=== PATIENT | male | born 1960 | race Caucasian/White ===

== ENCOUNTER 2017-02-04 09:16 | Outpatient (CLI) | payer OTHER ==
[~2017-02-04] VITALS: Ht 180.3 cm; Wt 73.0 kg
[2017-02-04] MEDS ORDERED: DIVA500T15 PO ×2 (09:25)
[2017-02-04] MEDS ORDERED: IBUP-2055 PO (09:25)
[2017-02-04 09:26] VITALS: BP 146/90
== END 2017-02-04 09:42 | disposition home or self-care (01) ==
LOC: PREOP 09:16
PROVIDERS: ATTEND Surgery
DX: Z01.818 Encounter for other preprocedural examination (principal); K80.20 Calculus of gallbladder without cholecystitis without obstruction
CPT/HCPCS: 87081

== ENCOUNTER 2017-02-07 06:05 | Day surgery (SDC) | payer SELFPAY ==
[~2017-02-07] VITALS: Ht 180.3 cm; Wt 73.0 kg
[~2017-02-07 06:05] MED LIST: DIVA500T15 PO; IBUP-2055 PO
--- OUTSIDE RECORDS SUMMARY | 2017-02-07 06:21 | XMS REPORT ---
Author Author SUNIL PALACIOS [facility] eClinicalWorks Address Unknown Phone Unavailable Care Team Providers Care Cupola Melting Supervisor Name Role Phone SUNIL PALACIOS CP Unavailable Allergies, Adverse Reactions, Alerts Substance Reaction Event Type Zithromax numbness, psychosis Drug Allergy Problems Problem Type Condition Code Onset Dates Condition Status Problem Essential hypertension, benign 401.1 Active Problem Nondependent tobacco use disorder 305.1 Active Problem Other dental caries 521.09 Active Problem Left hip pain M25.552 Active Problem Depression, unspecified depression type F32.9 Active Problem Hx of hyperlipidemia Z86.39 Active Problem Hyperlipidemia 272.4 Active Problem Elevated fasting glucose R73.01 Active Problem Hypertension I10 Active Problem Mixed hyperlipidemia E78.2 Active Assessment Long-term use of high-risk medication Z79.899 Active Problem Pain in joint, site unspecified 719.40 Active Problem Dyshidrosis 705.81 Active Medications Medication Code System Code Instructions Start Date End Date Status Dosage Depakote [facility] [address]-70 500 MG Orally 2 times a day not defined Procedures Procedure Coding System Code Date COMPLETE CBC W/AUTO DIFF WBC CPT-4 80081 Feb 22, 2016 RBC SED RATE, AUTOMATED CPT-4 32097 Feb 22, 2016 ASSAY, DIPROPYLACETIC ACID CPT-4 72221 Feb 22, 2016 VENIPUNCT, ROUTINE* CPT-4 81471 Feb 22, 2016 COMPREHEN METABOLIC PANEL CPT-4 49772 Feb 22, 2016 Office Visit, Est Pt., Level 4 CPT-4 00839 Feb 22, 2016 Vital Signs Date/Time: Feb 22, 2016 Cardiac Monitoring Heart Rate 92 bpm Weight 165.5 lbs Height 71 in BMI 23.08 Index Blood Pressure Diastolic 76 mmHg Blood Pressure Systolic 134 mmHg Results Name Result Date Reference Range Unit Abnormality Flag CBC ----Lymphs 26 18233644 % ----Neutrophils 62 57153327 % ----Baso (Absolute) 0.0 00164860 0.0-0.2 x10E3/uL ----Hemoglobin 17.5 66965603 12.6-17.7 g/dL ----Eos (Absolute) 0.1 28156693 0.0-0.4 x10E3/uL ----Hematocrit 50.9 95666168 37.5-51.0 % ----Monocytes(Absolute) 1.0 93656914 0.1-0.9 x10E3/uL H ----MCV 92 99460644 79-97 fL ----Lymphs (Absolute) 2.4 16148229 0.7-3.1 x10E3/uL ----MCH 31.8 41904467 26.6-33.0 pg ----Neutrophils (Absolute) 5.7 95912351 1.4-7.0 x10E3/uL ----MCHC 34.4 80070039 31.5-35.7 g/dL ----Immature Granulocytes 0 36678160 % ----Basos 0 72257043 % ----RDW 13.5 61996137 12.3-15.4 % ----Immature Grans (Abs) 0.0 86794133 0.0-0.1 x10E3/uL ----WBC 9.2 71605147 3.4-10.8 x10E3/uL ----Platelets 150 76484462 150-379 x10E3/uL ----Eos 1 74934314 % ----RBC 5.51 41511559 4.14-5.80 x10E6/uL ----Monocytes 11 95802582 % ESR/SED RATE ----Sedimentation Rate-Westergren 2 93375945 0-30 mm/hr ROUTINE VENIPUNCTURE VALPROIC ACID/DEPAKOTE ----Valproic Acid (Depakote)(R),S 53 40536179 50-100 ug/mL CMP ----Potassium, Serum 4.5 43027536 3.5-5.2 mmol/L ----Sodium, Serum 142 91168639 134-144 mmol/L ----BUN/Creatinine Ratio 15 50841830 9-20 ----eGFR If Africn Am 118 02943972 >59 mL/min/1.73 ----eGFR If NonAfricn Am 102 98135560 >59 mL/min/1.73 ----Creatinine, Serum 0.74 97336781 0.76-1.27 mg/dL L ----BUN 11 20160222 6-24 mg/dL ----Glucose, Serum 92 06877642 65-99 mg/dL ----AST (SGOT) 28 89134307 0-40 IU/L ----Globulin, Total 2.6 06790012 1.5-4.5 g/dL ----ALT (SGPT) 37 08159002 0-44 IU/L ----A/G Ratio 1.7 20160222 1.1-2.5 ----Bilirubin, Total 0.5 44969304 0.0-1.2 mg/dL ----Alkaline Phosphatase, S 82 72161544 39-117 IU/L ----Carbon Dioxide, Total 25 20160222 18-29 mmol/L ----Calcium, Serum 9.4 64667889 8.7-10.2 mg/dL ----Protein, Total, Serum 7.0 43903589 6.0-8.5 g/dL ----Albumin, Serum 4.4 92467206 3.5-5.5 g/dL ----Chloride, Serum 99 21358725 97-108 mmol/L Summary Purpose eClinicalWorks Submission
--- OUTSIDE RECORDS SUMMARY | 2017-02-07 06:21 | XMS REPORT ---
Author Author SUNIL PALACIOS Organization eClinicalWorks Address Unknown Phone Unavailable Care Team Providers Care Logistic Specialist Name Role Phone SUNIL PALACIOS CP Unavailable Allergies No Known Allergies Problems Problem Type Condition Code Onset Dates Condition Status Problem Nondependent tobacco use disorder 305.1 Active Problem Other dental caries 521.09 Active Problem Hyperlipidemia 272.4 Active Problem Pain in joint, site unspecified 719.40 Active Problem Essential hypertension, benign 401.1 Active Problem Dyshidrosis 705.81 Active Medications Medication Code System Code Instructions Start Date End Date Status Dosage losartan NDC 0 50 mg orally once daily take 1 tablet (50 mg) Results No Known Results Summary Purpose eClinicalWorks Submission
--- OUTSIDE RECORDS SUMMARY | 2017-02-07 06:21 | XMS REPORT ---
Author Author SUNIL PALACIOS [facility] eClinicalWorks Address Unknown Phone Unavailable Care Team Providers Care Concrete Tile Machine Operator Name Role Phone SUNIL PALACIOS CP Unavailable Allergies, Adverse Reactions, Alerts Substance Reaction Event Type Zithromax numbness, psychosis Drug Allergy Problems Problem Type Condition ICD-9 Code Onset Dates Condition Status Assessment Sciatica 724.3 Active Assessment COPD (chronic obstructive pulmonary disease) 496 Active Assessment Tobacco dependence 305.1 Active Assessment Hyperlipidemia 272.4 Active Assessment Neck pain 723.1 Active Problem Nondependent tobacco use disorder 305.1 Active Problem Other dental caries 521.09 Active Problem Hyperlipidemia 272.4 Active Problem Pain in joint, site unspecified 719.40 Active Assessment Essential hypertension, benign 401.1 Active Problem Essential hypertension, benign 401.1 Active Problem Dyshidrosis 705.81 Active Medications Medication Code System Code Instructions Start Date End Date Status Dosage Cyclobenzaprine HCl [facility] [address]-04 10 MG Orally Once a day prn at hs Feb 01, 2015 Feb 15, 2015 1 [place] [address]-03 10 mg Jul 08, 2014 1 Tablet by Oral route 1 time per day REPOSITORY losartan NDC 0 50 mg orally once daily take 1 tablet (50 mg) PredniSONE [facility] [address]-45 10 MG Orally Twice a day Feb 01, 2015 Feb 08, 2015 1 [place] [address]-49 200 MG Orally every 6 hrs 1 tablet as needed Procedures Procedure Coding System Code Date LIPID PANEL CPT-4 46036 Feb 01, 2015 Office Visit, Est Pt., Level 3 CPT-4 27414 Feb 01, 2015 COMPREHEN METABOLIC PANEL CPT-4 30754 Feb 01, 2015 VENIPUNCT, ROUTINE* CPT-4 69512 Feb 01, 2015 Vital Signs Date/Time: Feb 01, 2015 Temperature 98.7 F Weight 193.1 lbs Height 71 in BMI 26.93 Index Blood Pressure Diastolic 82 mmHg Blood Pressure Systolic 126 mmHg Cardiac Monitoring Heart Rate 84 bpm Results Name Result Date Reference Range Unit Abnormality Flag LIPID PANEL Summary Purpose eClinicalWorks Submission
--- OUTSIDE RECORDS SUMMARY | 2017-02-07 06:21 | XMS REPORT ---
Author Author ALONDRA RENO Organization eClinicalWorks Address Unknown Phone Unavailable Care Team Providers Care Ux Design Manager Name Role Phone ALONDRA RENO CP Unavailable Allergies No Known Allergies Problems [...] Active Problem Mixed hyperlipidemia E78.2 Active Assessment Other bipolar disorder F31.89 Active Problem Pain in joint, site unspecified 719.40 Active Problem Dyshidrosis 705.81 Active Medications No Known Medications Procedures Procedure Coding System Code Date Psychotherapy, patient &/family, 30 minutes, established patient CPT-4 54554 Jan 05, 2016 Results No Known Results Summary Purpose eClinicalWorks Submission
--- OUTSIDE RECORDS SUMMARY | 2017-02-07 06:22 | XMS REPORT | Continuity of Care Document ---
Author Author [facility] Address Unknown Phone Unavailable Allergies Active Description Code Type Severity Reaction Onset Reported/Identified Relationship to Patient Clinical Status Yes Zithromax Drug Allergy N/A N/A 06/24/2014 Medications Problems Date Dx Coded Attending Type Code Diagnosis Diagnosed By 06/24/2014 MADL CROSS CUT SAWYER, SUNIL L 305.1 TOBACCO ABUSE 06/24/2014 MADL CROSS CUT SAWYER, SUNIL L 401.1 HYPERTENSION, BENIGN ESSENTIAL 06/24/2014 MADL CROSS CUT SAWYER, SUNIL L 521.09 OTHER DENTAL CARIES 06/24/2014 MADL CROSS CUT SAWYER, SUNIL L 705.81 DYSHIDROSIS 06/24/2014 MADL CROSS CUT SAWYER, SUNIL L 305.1 TOBACCO ABUSE 06/24/2014 MADL CROSS CUT SAWYER, SUNIL L 401.1 HYPERTENSION, BENIGN ESSENTIAL 06/24/2014 MADL CROSS CUT SAWYER, SUNIL L 521.09 OTHER DENTAL CARIES 06/24/2014 MADL CROSS CUT SAWYER, SUNIL L 705.81 DYSHIDROSIS 07/08/2014 MADL CROSS CUT SAWYER, SUNIL L 272.4 OTHER AND UNSPECIFIED HYPERLIPIDEMIA 07/08/2014 MADL CROSS CUT SAWYER, SUNIL L 719.40 PAIN IN JOINT SITE UNSPECIFIED 08/30/2014 MADL CROSS CUT SAWYER, SUNIL L 368.12 TRANSIENT VISUAL LOSS 08/30/2014 MADL CROSS CUT SAWYER, SUNIL L 719.41 PAIN IN JOINT INVOLVING SHOULDER REGION Procedures Code [place] [address] ROUTINE VENIPUNCTURE 06/24/2014 49212 LIPID PANEL 06/24 01841 CBC 06/24/2014 6375590 GFR CALC (RESULT ONLY) 06/24/2014 82143 CMP 06/24/2014 00257 PSA TOTAL 2014 31933 TSH 06/24/2014 51709 ROUTINE VENIPUNCTURE 08/30/2014 4372453 GFR CALC (RESULT ONLY) 08/30/2014 71214 CMP 08/30/2014 37896 XRAY SHOULDER LEFT COMP 2 VIEWS 08/30/2014 OPHTHALMO ABHISHEK ESCALANTE 08/30/2014 Results Encounters ACCT No. Visit Date/Time Discharge Status Pt. Type Provider Facility Loc./Unit Complaint [id number] 08/30/2014 08:50:00 08/30/2014 23: 59:59 [facility] Outpatient SUNIL PALACIOS APRN [id number] 06/24/2014 09:20:00 06/24/2014 23: 59:59 [facility] Outpatient SUNIL PALACIOS APRN
--- OUTSIDE RECORDS SUMMARY | 2017-02-07 06:22 | XMS REPORT ---
Author Author NAIMA GIORDANO Organization eClinicalWorks Address Unknown Phone Unavailable Care Team Providers Care Inspector Motor Vehicles Name Role Phone NAIMA GIORDANO CP Unavailable Allergies No Known Allergies Problems Problem Type Condition Code Onset Dates Condition Status Problem Dyshidrosis 705.81 Active Problem Pain in joint, site unspecified 719.40 Active Problem Mixed hyperlipidemia E78.2 Active Problem Hyperlipidemia 272.4 Active Problem Hypertension I10 Active Problem Other dental caries 521.09 Active Problem Essential hypertension, benign 401.1 Active Problem Elevated fasting glucose R73.01 Active Problem Nondependent tobacco use disorder 305.1 Active Medications No Known Medications Results No Known Results Summary Purpose eClinicalWorks Submission
--- OUTSIDE RECORDS SUMMARY | 2017-02-07 06:22 | XMS REPORT ---
Author Author SUNIL PALACIOS Organization eClinicalWorks Address Unknown Phone Unavailable Care Team Providers Care Internal Medicine Nurse Name Role Phone SUNIL PALACIOS CP Unavailable Allergies, Adverse Reactions, Alerts Substance Reaction Event Type Zithromax numbness, psychosis Drug Allergy Problems Problem Type Condition Code Onset Dates Condition Status Assessment Hypertension I10 Active Problem Dyshidrosis 705.81 Active Problem Pain in joint, site unspecified 719.40 Active Assessment Mixed hyperlipidemia E78.2 Active Problem Mixed hyperlipidemia E78.2 Active Problem Hyperlipidemia 272.4 Active Problem Hypertension I10 Active Problem Other dental caries 521.09 Active Problem Essential hypertension, benign 401.1 Active Problem Elevated fasting glucose R73.01 Active Problem Nondependent tobacco use disorder 305.1 Active Medications Medication Code System Code Instructions Start Date End Date Status Dosage Ibuprofen [facility] [address]-81 200 MG Orally every 6 hrs 1 tablet as needed Simvastatin [facility] [address]-79 20 MG Orally Once a day Feb 03, 2015 1 tablet in the evening Benazepril HCl [facility] [address]-26 20 MG Orally Once a day May 31, 2015 1 tablet Procedures Procedure Coding System Code Date COMPREHEN METABOLIC PANEL CPT-4 97971 May 31, 2015 Office Visit, Est Pt., Level 3 CPT-4 35780 May 31, 2015 LIPID PANEL CPT-4 73928 May 31, 2015 VENIPUNCT, ROUTINE* CPT-4 99690 May 31, 2015 Vital Signs Date/Time: May 31, 2015 Temperature 99.4 F Weight 197.8 lbs Height 71 in BMI 27.58 Index Blood Pressure Diastolic 90 mmHg Blood Pressure Systolic 132 mmHg Cardiac Monitoring Heart Rate 96 bpm Results No Known Results Summary Purpose eClinicalWorks Submission
--- OUTSIDE RECORDS SUMMARY | 2017-02-07 06:22 | XMS REPORT ---
Author Author ALONDRA RENO Organization eClinicalWorks Address Unknown Phone Unavailable Care Team Providers Care Book Author Name Role Phone ALONDRA RENO CP Unavailable Allergies No Known Allergies Problems Problem Type Condition ICD-9 Code Onset Dates Condition Status Problem Nondependent tobacco use disorder 305.1 Active Problem Other dental caries 521.09 Active Problem Hyperlipidemia 272.4 Active Problem Pain in joint, site unspecified 719.40 Active Problem Essential hypertension, benign 401.1 Active Problem Dyshidrosis 705.81 Active Medications No Known Medications Results No Known Results Summary Purpose eClinicalWorks Submission
--- OUTSIDE RECORDS SUMMARY | 2017-02-07 06:22 | XMS REPORT ---
Author Author SUNIL PALACIOS Organization eClinicalWorks Address Unknown Phone Unavailable Care Team Providers Care Pediatric Dental Assistant Name Role Phone SUNIL PALACIOS CP Unavailable [...] Active Problem Mixed hyperlipidemia E78.2 Active Assessment Left hip pain M25.552 Active Assessment Hx of hyperlipidemia Z86.39 Active Assessment Hypertension I10 Active Problem Pain in joint, site unspecified 719.40 Active Assessment Depression, unspecified depression type F32.9 Active Problem Dyshidrosis 705.81 Active Medications No Known Medications Procedures Procedure Coding System Code Date X-RAY EXAM HIP UNI 2-3 VIEWS CPT-4 60869 Jan 05, 2016 VENIPUNCT, ROUTINE* CPT-4 64166 Jan 05, 2016 LIPID PANEL CPT-4 36192 Jan 05, 2016 Office Visit, Est Pt., Level 4 CPT-4 73818 Jan 05, 2016 Vital Signs Date/Time: Jan 05, 2016 Cardiac Monitoring Heart Rate 84 bpm Weight 169.9 lbs Height 71 in BMI 23.69 Index Blood Pressure Diastolic 82 mmHg Blood Pressure Systolic 130 mmHg Results No Known Results Summary Purpose eClinicalWorks Submission
--- OUTSIDE RECORDS SUMMARY | 2017-02-07 06:22 | XMS REPORT ---
Author Author SNUIL PALACIOS Organization eClinicalWorks Address Unknown Phone Unavailable Care Team Providers Care Making Department Preparer Name Role Phone SUNIL PALACIOS CP Unavailable Allergies No Known Allergies Problems Problem Type Condition Code Onset Dates Condition Status Assessment Elevated fasting glucose R73.01 Active Problem Dyshidrosis 705.81 Active Problem Pain in joint, site unspecified 719.40 Active Problem Mixed hyperlipidemia E78.2 Active Problem Hyperlipidemia 272.4 Active Problem Hypertension I10 Active Problem Other dental caries 521.09 Active Problem Essential hypertension, benign 401.1 Active Problem Elevated fasting glucose R73.01 Active Problem Nondependent tobacco use disorder 305.1 Active Medications Medication Code System Code Instructions Start Date End Date Status Dosage Keflex [facility] [address]-52 500 MG Orally 3 times a day Jun 08, 2015 1 capsule Results No Known Results Summary Purpose eClinicalWorks Submission
--- OUTSIDE RECORDS SUMMARY | 2017-02-07 06:22 | XMS REPORT ---
Author Author SUNIL PALACIOS Organization eClinicalWorks Address Unknown Phone Unavailable Care Team Providers Care Cutter And Paster Press Clippings Name Role Phone SUNIL PALACIOS CP Unavailable [...] Instructions Start Date End Date Status Dosage Simvastatin [facility] [address]-23 20 MG Orally Once a day Feb 03, 2015 1 tablet in the evening Results No Known Results Summary Purpose eClinicalWorks Submission
--- OUTSIDE RECORDS SUMMARY | 2017-02-07 06:22 | XMS REPORT ---
Author Author NAIMA GIORDANO Organization eClinicalWorks Address Unknown Phone Unavailable Care Team Providers Care Apple Turner Name Role Phone NAIMA GIORDANO CP Unavailable Allergies, Adverse Reactions, Alerts Substance Reaction Event Type Zithromax numbness, psychosis Drug Allergy Problems Problem Type Condition Code Onset Dates Condition Status Assessment Bipolar disorder, unspecified F31.9 Active Problem Dyshidrosis 705.81 Active Problem Pain [...] Start Date End Date Status Dosage Ibuprofen [facility] [address]-50 200 MG Orally every 6 hrs 1 tablet as needed Procedures Procedure Coding System Code Date Office Visit, Est Pt., Level 3 CPT-4 98811 Dec 27, 2015 Vital Signs Date/Time: Dec 27, 2015 Cardiac Monitoring Heart Rate 100 bpm Weight 171.0 lbs Height 71 in BMI 23.85 Index Blood Pressure Diastolic 77 mmHg Blood Pressure Systolic 123 mmHg Results No Known Results Summary Purpose eClinicalWorks Submission
[2017-02-07] MEDS ORDERED: ceFAZolin 2 GM/50 ML NS 50 ML ONE (06:26)
[2017-02-07 06:30] VITALS: BP 138/94
[2017-02-07] MEDS ORDERED: RT-ALBUTEROL SULF 2.5 MG/3 ML PRE-MIX VIAL INH ONE (06:30)
[2017-02-07] MEDS ORDERED: FAMOTIDINE 20MG/2ML IV (PEPCID) IV ONE (06:30)
[2017-02-07] MEDS ORDERED: ONDANSETRON 4 MG/2 ML (SDV) Z0FRAN IV ONE (06:30)
[2017-02-07] MEDS: LACTATED RINGERS 1,000 ML IV PRN ×2 (06:45→08:35)
[2017-02-07] MEDS ORDERED: LIDOCAINE PF 2% 5 ML (XYLOCAINE) VIAL ONE (06:59)
[2017-02-07] MEDS ORDERED: MIDAZOLAM 2 MG/2 ML (VERSED) VIAL ONE (06:59)
[2017-02-07] MEDS ORDERED: GLYCOPYRROLATE 0.2 MG/ML (ROBINUL) 2 ML VIAL ONE ×2 (06:59→08:59)
[2017-02-07] MEDS ORDERED: NEOSTIGMINE (BLOXIVERZ ) 1 MG/1ML 10 ML VIAL ONE (06:59)
[2017-02-07] MEDS ORDERED: SEVOFLURANE (ULTANE) 15 ML INHAL SOLN ONE (06:59)
[2017-02-07] MEDS ORDERED: DEXAMETHASONE 10 MG/ML (DECADRON) 1 ML VIAL ONE (06:59)
[2017-02-07] MEDS ORDERED: LACTATED RINGERS 1,000 ML IV ONE (06:59)
[2017-02-07] MEDS ORDERED: fentaNYL INJECTION 250 MCG/5 ML AMP ONE (06:59)
[2017-02-07] MEDS ORDERED: ONDANSETRON 4 MG/2 ML (SDV) Z0FRAN ONE (06:59)
[2017-02-07] MEDS ORDERED: proPOfol 200 MG/20 ML (DIPRIVAN) VIAL IV ONE (06:59)
[2017-02-07] MEDS ORDERED: ROCURONIUM 50 MG/5 ML (ZEMURON) VIAL IV ONE (06:59)
[2017-02-07] MEDS ORDERED: ceFAZolin 2 GM/NS 50 ML IV ONE (07:00)
[2017-02-07] MEDS ORDERED: LIDOCAINE 1% INJ 20 ML (XYLOCAINE) VIAL ONE (07:17)
[2017-02-07] MEDS ORDERED: BUPIVACAINE 0.5% 30 ML (SENSORCAINE) VIAL ONE (07:17)
--- NOTE | 2017-02-07 07:56 | Progress Note-Pre Operative ---
Pre-Operative Progress Note H&P Reviewed The H&P was reviewed, patient examined and no changes noted. Date Seen by Provider: Feb 07, 2017 Time Seen by Provider: 07:56 Date H&P Reviewed: Feb 07, 2017 Time H&P Reviewed: 07:56 Pre-Operative Diagnosis: symptomatic cholelithiasis EVANS QUINTEROS DO Feb 07, 2017 07:56
--- NOTE | 2017-02-07 09:04 | Progress Note-Post Operative ---
Post-Operative Progess Note Surgeon (s)/User Experience Lead (s) Surgeon EAVNS QUINTEROS DO User Experience Lead: Dr. Servin Pre-Operative Diagnosis symptomatic cholelithiasis Post-Operative Diagnosis same Procedure & Operative Findings Date of Procedure 02/07/17 Procedure Performed/Findings lap cam c ioc Anesthesia Type general Estimated Blood Loss Estimated blood loss (mL): min Specimens/Packing Specimens Removed gallbladder EVANS QUINTEROS DO Feb 07, 2017 9:04 am
[2017-02-07] MEDS ORDERED: DOCU-143 PO (09:06)
[2017-02-07] MEDS ORDERED: HYDR-3812 PO (09:06)
--- NOTE | 2017-02-07 09:08 | Discharge Inst-Simple/Standard ---
Discharge Inst-Standard Discharge Medications New, Converted or Re-Newed RX: RX on Chart Patient Instructions/Follow Up Plan of Care/Instructions/FU: 2 weeks Sue Activity as Tolerated: No Discharge Diet: Regular Diet Other Inst to Patient Follow up Appt: Make appointment for 2 weeks. Instructions: No lifting greater than 10 pounds. No strenuous activity. May shower in 24 hours, no tub bath or soaking. Use incentive spirometer at home as directed. No Smoking Skin/Wound Care: You have special glue over incisions it will fall off on it's own. Symptoms to Report: Appetite Changes, Extremity Discoloration, Numbness/Tingling, Swelling Increased , Bleeding Excessive, Eyesight Changes, Pain Increased, Urine Color Change, Constipation(Persistent), Fever over 101 degree F, Pain/Pressure in chest, Urinating Difficulty, Cough Up/Vomit Blood, Heart Beat Irreg/Pounding, Pain/ Pressure in jaw, Vaginal Bleeding Increase, Cramps in feet or legs, Lightheadedness, Pain/Pressure in shoulder, Diarrhea(Persistent), Memory Changes Suddenly, Questions/Concerns, Weight gain consecutive days, Dizziness/ Fainting, Nausea/Vomiting, Shortness of Breath, Weight gain over 2 pounds. If eyes or skin turn yellow notify physician. If questions or concerns contact your physician Or seek help at emergency department. EVANS QUINTEROS DO Feb 07, 2017 9:08 am
[2017-02-07] MEDS ORDERED: LABETALOL HCL 20 MG/4 ML VIAL ONE (09:13)
[2017-02-07] MEDS ORDERED: HYDROcodone/APAP 5 MG/325 MG (LORTAB) TAB PO PRN (09:15)
[2017-02-07] MEDS ORDERED: ONDANSETRON 4 MG/2 ML (SDV) Z0FRAN IVP PRN (09:30)
[2017-02-07] MEDS ORDERED: LABETALOL HCL 20 MG/4 ML VIAL IV ONE (09:30)
[2017-02-07] MEDS ORDERED: HYDROmorphone (DILAUDID) 2 MG/ML VIAL IVP PRN (09:30)
[2017-02-07] MEDS: morphine INJ 10 MG/ML 1ML (SYR OR VIAL) IVP PRN ×2 (09:40→09:45)
[2017-02-07] MEDS ORDERED: morphine INJ 10 MG/ML 1ML (SYR OR VIAL) ONE (09:40)
[2017-02-07 10:25] VITALS: BP 149/93
[2017-02-07 10:55] VITALS: BP 148/91
[2017-02-07 11:25] VITALS: BP 138/84
--- NOTE | 2017-02-07 21:04 | Diagnostic Imaging Report ---
EXAMINATION: Intraoperative cholangiogram. INDICATION: Laparoscopic cholecystectomy performed by Dr. Rogers. 10 seconds of fluoroscopy time was utilized. 4 cc of Omnipaque 300 contrast was utilized. FINDINGS: There is abnormal opacification of the CBD as seen with passage of contrast into the duodenum with no evidence of obstruction. No suspicious filling defects to suggest stones. There is a filling defect seen near the cystic duct level probably related to an air bubble from the injection or the balloon. Intrahepatic biliary ducts are partially visualized with no abnormality seen. IMPRESSION: No evidence of CBD stones or obstruction. Dictated by: Dictated on workstation # [id number]
--- NOTE | 2017-02-08 06:12 | OPERATIVE REPORT ---
DATE OF SERVICE: 02/07/2017 PREOPERATIVE DIAGNOSIS: Symptomatic cholelithiasis. POSTOPERATIVE DIAGNOSIS: Symptomatic cholelithiasis. PROCEDURE: Laparoscopic cholecystectomy with intraoperative cholangiogram. SURGEON: Evans Rogers DO SUPERVISOR TILE AND MOTTLE: Dr. Servin, assisted in retraction, dissection and closure. ANESTHESIA: General. ESTIMATED BLOOD LOSS: Minimal. COMPLICATIONS: None. INDICATIONS: The patient is a 56-year-old male, who has been having right upper quadrant abdominal pain. Symptoms and radiological findings suggestive of symptomatic cholelithiasis. He understands risks and benefits of procedure and wished to proceed with procedure. Consent was signed in the chart. PROCEDURE: The patient was taken to the operating suite. He was prepped and draped in sterile fashion. Surgical pause was performed. Local anesthetic was used and infiltrated above the umbilicus. A 12 mm incision was made. Cautery was taken down to the fascia, which was then scored grasped, elevated and the abdomen was entered. An 0 Vicryl suture was placed in a [id number] fashion for later closure. The balloon trocar was inserted in the abdomen and pneumoperitoneum was achieved. Under direct visualization of the laparoscope, a 5 mm trocar was placed in the subxiphoid region and two 5 mm trocars were placed in the right upper quadrant. The gallbladder had some adhesions around the area, which were taken down. The gallbladder was grasped and elevated. The cystic artery and cystic duct were then dissected out. Clips were placed on the proximal and distal portion of the cystic artery and then clips were placed on the distal portion of the cystic duct, which was then partially transected. The Arrow catheter was inserted into the duct and cholangiogram was then performed. There were no filling defects. Contrast made its way into the duodenum. The catheter was removed. Clips were placed on the proximal portion of the cystic duct and the duct was then completely transected and also the same with the cystic artery. The hook cautery was used to dissect the gallbladder from the gallbladder fossa achieving hemostasis. There was a posterior branch of the cystic artery, which had to be clipped. Once the gallbladder was removed, the area was then reinspected for hemostasis and it had been achieved. The gallbladder was placed in an Endobag and removed through the 12 mm trocar site. The abdomen was then irrigated with copious amounts of irrigation and suction. The abdomen was then desufflated. The trocars were removed. The fascial defect of the 12 incision was closed with the previously placed 0 Vicryl. The skin was then closed using 4-0 Vicryl in a subcuticular fashion. The abdomen was then washed and dried and Dermabond was placed over the incisions. The patient tolerated the procedure well without any complications. He was taken to recovery room in stable condition. RECOMMENDATIONS: He will follow up in the office in 2 weeks. If he has any problems prior to that, he should be reevaluated at that time. Job ID: [id number] DocumentID: [id number] Dictated Date: 02/07/2017 16:29:23 Public Relations Account Supervisor Date: 02/08/2017 06:11:21 Dictated By: EVANS ROGERS DO
== END 2017-02-07 11:45 | disposition home or self-care (01) ==
LOC: SDC 06:05
PROVIDERS: ATTEND Surgery
DX: K81.1 Chronic cholecystitis (principal); R56.9 Unspecified convulsions; Z79.899 Other long term (current) drug therapy
CPT/HCPCS: 88304; 94640; 94664

== ENCOUNTER 2019-01-14 11:17 | Emergency (ER) | payer SELFPAY ==
[~2019-01-14] VITALS: Ht 180.3 cm; Wt 78.0 kg
[~2019-01-14 11:17] MED LIST changes: +ACHD5005 PO; +DOCU-143 PO
[2019-01-14 12:02] LABS: BASOPHILS % (AUTO) 1 % (0-10); EOSINOPHILS % (AUTO) 2 % (0-10); HEMATOCRIT 47 % (40-54); HEMOGLOBIN 16.7 G/DL (13.3-17.7); LYMPHOCYTES % (AUTO) 36 % (12-44); MEAN CORPUSCULAR HEMOGLOBIN 32 PG (25-34); MEAN CORPUSCULAR HGB CONC 35 G/DL (32-36); MEAN CORPUSCULAR VOLUME 92 FL (80-99); MONOCYTES % (AUTO) 11 % (0-12); NEUTROPHILS % (AUTO) 51 % (42-75); PLATELET COUNT 106 10^3/uL (130-400); RED CELL DISTRIBUTION WIDTH 12.8 % (10.0-14.5); WHITE BLOOD COUNT 6.2 10^3/uL (4.3-11.0)
[2019-01-14 12:03] LABS: EOSINOPHILS # (AUTO) 0.1 10^3/uL (0.0-0.3); LYMPHOCYTES # (AUTO) 2.2 X 10^3 (1.0-4.0); MONOCYTES # (AUTO) 0.7 X 10^3 (0.0-1.0); NEUTROPHILS # (AUTO) 3.1 X 10^3 (1.8-7.8)
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
[2019-01-14 12:21] LABS: SODIUM 139 MMOL/L (135-145)
[2019-01-14 12:22] LABS: ALANINE AMINOTRANSFERASE 29 U/L (0-55); ALBUMIN 4.1 GM/DL (3.2-4.5); ALKALINE PHOSPHATASE 81 U/L (40-136); BILIRUBIN,TOTAL 0.7 MG/DL (0.1-1.0); BUN/CREATININE RATIO 17; CALCIUM 9.5 MG/DL (8.5-10.1); CARBON DIOXIDE 27 MMOL/L (21-32); CHLORIDE 97 MMOL/L (98-107); CREATININE SERUM 0.63 MG/DL (0.60-1.30); GFR ESTIMATED > 60; GLUCOSE 210 MG/DL (70-105); POTASSIUM 3.9 MMOL/L (3.6-5.0); TOTAL PROTEIN 7.6 GM/DL (6.4-8.2)
--- NOTE | 2019-01-14 12:52 | Diagnostic Imaging Report ---
PROCEDURE: CT head without contrast. TECHNIQUE: Multiple contiguous axial images were obtained through the brain without the use of intravenous contrast. Auto Exposure Controls were utilized during the CT exam to meet ALARA standards for radiation dose reduction. INDICATION: Headaches. Blurred vision. COMPARISON: None. FINDINGS: No intracranial hemorrhage, mass effect, hydrocephalus or extra-axial fluid collections. No CT evidence of a territorial infarction. Mild generalized cerebral and cerebellar parenchymal volume loss is age appropriate. The visualized paranasal sinuses and mastoids are clear. Osseous structures are intact. IMPRESSION: No acute intracranial CT findings Dictated by: Dictated on workstation # [id number]
--- NOTE | 2019-01-14 12:53 | Diagnostic Imaging Report ---
PATIENT HISTORY: Headache, hypertension, blurred vision.. TECHNIQUE: 2 views of the chest COMPARISON: None FINDINGS: Lung volumes are large. No focal consolidation is seen. There is no pleural effusion or pneumothorax. The cardio mediastinal silhouette is normal in size and contour. IMPRESSION: No acute pulmonary abnormality seen. Dictated by: Dictated on workstation # [id number]
[2019-01-14] MEDS ORDERED: lisINopril 10 MG (PRINIVIL) TABLET ONE (13:05)
[2019-01-14] MEDS ORDERED: LISI-552 PO (13:06)
[2019-01-14] MEDS ORDERED: lisINopril 20 MG (PRINIVIL) TABLET PO ONE (13:15)
[2019-01-14 13:18] VITALS: BP 180/111
[2019-01-14] MEDS: lisINopril 10 MG (PRINIVIL) TABLET PO ONE (13:18)
== END 2019-01-14 13:34 | disposition home or self-care (01) ==
LOC: EDUNIT# 11:17 → ER FS 11:19
DX: I10 Essential (primary) hypertension (principal); G43.909 Migraine, unspecified, not intractable, without status migrainosus; F31.9 Bipolar disorder, unspecified; H54.7 Unspecified visual loss; F17.210 Nicotine dependence, cigarettes, uncomplicated; Z85.828 Personal history of other malignant neoplasm of skin; Z87.442 Personal history of urinary calculi; Z88.1 Allergy status to other antibiotic agents; Z87.828 Personal history of other (healed) physical injury and trauma
CPT/HCPCS: 36415; 70450; 71046; 80053; 84484; 85025; 93005

== ENCOUNTER → 2019-04-20 | Outpatient (CLI) | payer OTHER ==
[~2019-04-20] VITALS: Ht 180 cm; Wt 81.0 kg
[~2019-04-20] MED LIST changes: +CATHETER FLUSH 10 ML SYR IV PRN; +LISI-552 PO
[2019-04-20 09:42] VITALS: BP 168/89
[2019-04-20 09:51] VITALS: BP 225/117
[2019-04-20 09:52] VITALS: BP 239/110
[2019-04-20 09:53] VITALS: BP 239/110
--- NOTE | 2019-04-20 22:09 | STRESS TEST ---
DATE OF SERVICE: 04/20/2019 EXERCISE MYOVIEW STRESS TEST REPORT. REFERRING PHYSICIAN: [facility]. Baseline heart rate is 72. Baseline blood pressure 154/82. Baseline EKG is sinus rhythm with no ischemic changes. In summary, the patient was able to exercise. The patient received 10.01 mCi of technetium-99 Myoview and the resting images were obtained. Then, the patient started exercising with a baseline heart rate, blood pressure and EKG mentioned above. The patient was able to exercise for a total of 3 minutes on standard Librado protocol. With peak exercise level, EKG was showing nondiagnostic changes. Blood pressure 239/110. During recovery, heart rate and blood pressure returned to baseline. EKG returned to baseline. The resting and stress images were reviewed and compared in the short axis, horizontal long axis and vertical long axis views. Review of the images showed diaphragmatic attenuation with decreased uptake involving the mid to apical inferior wall with subtle reversibility. SSS is 5, SDS 4, TID value 1.09. On the gated images, the left ventricle appeared to be in normal size with normal contractility. Calculated ejection fraction 69%. CONCLUSION: 1. Poor exercise tolerance for a total of 3 minutes on standard Librado protocol, total of 4.2 METS achieving 94% of maximum expected heart rate. 2. Severe hypertensive response to exercise with peak blood pressure 239/110. Returned to baseline during recovery. 3. Nondiagnostic EKG changes with exercise returned to baseline during recovery. 4. Diaphragmatic attenuation with mild ischemia involving the mid to apical inferior wall. 5. Normal left ventricular size with normal contractility. Calculated ejection fraction 69%. Job ID: [id number] DocumentID: [id number] Dictated Date: 04/20/2019 16:48:34 Administrative Services Manager Date: 04/20/2019 22:08:29 Dictated By: NATI FLORES MD
== END ==
LOC: CARD 08:15
PROVIDERS: ATTEND Internal Medicine Cardiovascular Disease
DX: I10 Essential (primary) hypertension (principal); R07.9 Chest pain, unspecified; R06.09 Other forms of dyspnea; E78.2 Mixed hyperlipidemia
CPT/HCPCS: 78452; 93017; 93306

== ENCOUNTER 2019-04-29 06:48 | Day surgery (SDC) | payer OTHER ==
[2019-04-29] VITALS (11 sets, daily range): BP systolic 115–148; BP diastolic 77–92
[~2019-04-29] VITALS: Ht 180 cm; Wt 81.0 kg
[~2019-04-29 06:48] MED LIST changes: -CATHETER FLUSH 10 ML SYR IV PRN
[2019-04-29] MEDS ORDERED: HEParin 1000 UNIT/ML (10ML VIAL) FOR BOLUS ONE ×2 (06:59→08:39)
[2019-04-29] MEDS ORDERED: NS IV 1000 ML 3,000 ML ONE (06:59)
[2019-04-29] MEDS ORDERED: LIDOCAINE 1% INJ 20 ML 20 ML VIAL ONE (06:59)
[2019-04-29] MEDS ORDERED: NS IV 1000 ML 1,000 ML IV SCH (07:00)
[2019-04-29 07:21] LABS: HEMOGLOBIN 15.4 G/DL (13.3-17.7); MEAN PLATELET VOLUME 10.8 FL (7.4-10.4); RED CELL DISTRIBUTION WIDTH 13.6 % (10.0-14.5); WHITE BLOOD COUNT 9.1 10^3/uL (4.3-11.0)
[2019-04-29 07:22] LABS: BILIRUBIN,URINE NEGATIVE (NEGATIVE); CLARITY,URINE CLEAR; COLOR,URINE YELLOW; GLUCOSE, URINE (UA) NEGATIVE (NEGATIVE); KETONES,URINE NEGATIVE (NEGATIVE); LEUKOCYTE ESTERASE ,URINE NEGATIVE (NEGATIVE); NITRITE,URINE NEGATIVE (NEGATIVE); PH,URINE 6.5 (5-9); PROTEIN,URINE NEGATIVE (NEGATIVE)
[2019-04-29 07:29] LABS: BACTERIA,URINE NEGATIVE /HPF; SQUAMOUS EPITHELIAL CELL,UR RARE /HPF
[2019-04-29] MEDS ORDERED: ASPI-983 PO (07:32)
[2019-04-29] MEDS ORDERED: METO-387 PO (07:32)
[2019-04-29] MEDS ORDERED: MIDAZOLAM 5 MG/5 ML (VERSED) VIAL ONE (07:34)
[2019-04-29] MEDS ORDERED: fentaNYL INJECTION 100 MCG/2 ML AMP ONE (07:34)
[2019-04-29] MEDS ORDERED: LISI-552 PO (07:35)
[2019-04-29] MEDS ORDERED: AMLO10TA7 PO (07:35)
[2019-04-29] MEDS ORDERED: PANT40TA3 PO (07:35)
[2019-04-29] MEDS ORDERED: ATOR40TA70 PO (07:35)
[2019-04-29 07:38] LABS: PROTHROMBIN TIME PATIENT 13.9 SEC (12.2-14.7)
[2019-04-29 07:42] LABS: ALANINE AMINOTRANSFERASE 33 U/L (0-55); ALBUMIN 4.1 GM/DL (3.2-4.5); ALKALINE PHOSPHATASE 69 U/L (40-136); BILIRUBIN,TOTAL 0.5 MG/DL (0.1-1.0); BUN/CREATININE RATIO 21; CALCIUM 9.5 MG/DL (8.5-10.1); CARBON DIOXIDE 27 MMOL/L (21-32); CHLORIDE 101 MMOL/L (98-107); CHOLESTEROL 147 MG/DL (< 200); CREATININE SERUM 0.82 MG/DL (0.60-1.30); GFR ESTIMATED > 60; GLUCOSE 122 MG/DL (70-105); HDL CHOLESTEROL 19 MG/DL (40-60); POTASSIUM 4.3 MMOL/L (3.6-5.0); SODIUM 139 MMOL/L (135-145); TOTAL PROTEIN 7.9 GM/DL (6.4-8.2); TRIGLYCERIDES 117 MG/DL (<150); VLDL CHOLESTEROL 23 MG/DL (5-40)
--- NOTE | 2019-04-29 08:06 | NUR ---
SPOKE WITH PT (HE HAD HIS BOTTLES) TO COMPLETE THE MED REC. PT WAS ABLE TO TELL ME HOW/WHEN HE TAKES EACH MED- AND THEY MATCHED THE DIRECTIONS ON THE BOTTLES AND HAD GOOD FILL DATES. (AMLODIPINE: BOTTLE SAYS TO TAKE 1/2 TAB DAILY- PT SAID HE WAS ONLY GOING TO TAKE A 1/2 IF HE EXPERIENCED DIZZINESS, BUT SINCE HE DID NOT EXPERIENCE THAT HE WAS TOLD TO TAKE A FULL TAB. THE FOLLOWING ARE FILL DATES FROM [facility]: THE FOLLOWING WERE FILLED ON 02-03-2019 LISINOPRIL #90/90DS AMLODIPINE #90/90DS PANTOPRAZOLE #90/90DS ATORVASTATIN # 90/90DS DEPAKOTE #255/85DS 04-23-2019 METROPOLOL #30/30DS OTC MEDS: ASPIRIN
--- NOTE | 2019-04-29 08:36 | Diagnostic Imaging Report ---
EXAMINATION: Chest radiograph, portable AP view. DATE: 04/29/2019 7:31 AM hours. INDICATION: 59-year-old male, shortness of breath. Hypertension. COMPARISON: January 14, 2019 FINDINGS: Heart size and mediastinal contours are unremarkable. There is no identified pneumothorax. There is no large pleural effusion. There is no identified focal airspace consolidation. IMPRESSION: No identified acute cardiopulmonary abnormality. Dictated by: Dictated on workstation # [id number]
[2019-04-29] MEDS ORDERED: NITRO DRIP 25000 MCG/D5W 250 ML IV ONE (08:39)
[2019-04-29] MEDS ORDERED: ASPIRIN 81 MG CHEW (CHILDREN'S ASA) ONE (09:11)
[2019-04-29] MEDS ORDERED: CLOPIDOGREL 300 MG (PLAVIX) TABLET PO ONE (09:11)
--- NOTE | 2019-04-29 09:16 | Cardiac Procedure Note-CS/ASA ---
Pre-Procedure Note Pre-Op Procedure Note H&P Reviewed The H&P was reviewed, patient examined and no changes noted. Date H&P Reviewed: Apr 29, 2019 Time H&P Reviewed: 09:15 Conscious Sedation Pre-Proced Time 09:15 ASA Score 3 For ASA 3 and 4: Consider anesthesia and medical clearance. Also, for patients with a history of failed moderate sedation consider anesthesia. Airway Lungs Heart ASA score ASA 1: a normal healthy patient ASA 2: a patient with a mild systemic disease (mid diabetes, controlled hypertension, obesity X ASA 3: a patient with a severe systemic disease that limits activity (angina, COPD, prior Myocardial infarction) ASA 4: a patient with an incapacitating disease that is a constant threat to life (CHF, renal failure) ASA 5: a moribund patient not expected to survive 24 hrs. (ruptured aneurysm) ASA 6: a declared brain- patient whose organs are being harvested. For emergent operations, add the letter E after the classification Mallampati Classification Grade 3 Sedation Plan Analgesia, Amnesia, Plan communicated to team members, Discussed options with patient/fam, Discussed risks with patient/fam The patient is an appropriate candidate to undergo the planned procedure, sedation, and anesthesia. The patient immediately re-assessed prior to indication. NATI FLORES MD Apr 29, 2019 09:16 POS
[2019-04-29] MEDS ORDERED: PATIENT MAY USE OWN MEDS, ALL PO SCH (09:30)
--- NOTE | 2019-04-29 09:33 | Cardiac Cath Report ---
Cardiac Cath Report Physician (s)/Child Adolescent Care (s) Physician NATI FLORES MD Pre-Procedure Diagnosis Pre-Procedure Diagnosis: Coronary artery disease, peripheral arterial disease Post-Procedure Note Procedure Start Date: Apr 29, 2019 Name of Procedure: Left heart catheterization Left ventriculogram Aortic arch angiogram Abdominal aortogram First order Bilateral lower extremities runoff Stenting of the right coronary artery Findings/Procedure Note PROCEDURE NOTE: 59 years old gentleman with history of hypertension, hyperlipidemia, had an abnormal stress test with inferior wall ischemia, has been having lower extremities pain, had an abnormal YENNIFER mainly on the right side. Decided to proceed with cardiac catheterization and peripheral angiogram with left groin access for possible intervention on the right leg in addition has 20 mmHg discrepancy between the right and left arm and IBP and I decided to evaluate aortic arch angiogram. After explaining the procedure to the patient, all pros and cons were explained, all questions were answered. The patient signed the consent and then he was placed on the cardiac catheterization laboratory. Groin was prepped SL fashion local anesthesia was used. Sheath placed in the left femoral artery. Tiara right and left catheter were used to access the coronary system. Pigtail was used to access the left ventricular cavity. Left ventriculogram was not done Aortic arch angiogram was donenext Patient was given 6000 units of heparin, if our guide was advanced to the right coronary system, BMW wire was used, patient has severe eccentric plaque stenosis in the proximal and midright coronary artery, BMW wire was advanced then predilated patient with 3 x 20 balloon then I proceeded with deployment of a long stent Ina 3 x 28 mm postdilated with noncompliant 3.5 balloon with multiple inflation up to 3.68 mm with excellent results. I did runoff of the left leg with the sheath then advanced Rim cavitary in the right common iliac artery and did runoff to the right leg. Then exchanged the rim catheter into pigtail catheter and placed in the abdominal aorta and did abdominal aortogram evaluated the bifurcation that appeared to have significant lesion down the day. Repeat angiogram to evaluate the bifurcation. At the end of the procedure the sheath was removed. Closure device was used FINDINGS: Hemodynamics LV 96/7, end-diastolic pressure of 7 Aorta 95/48 mean of 69 ANATOMY: Left Main has no significant obstructive disease Left Anterior Descending has mild to moderate mid lesion nonobstructive disease Left Circumflex has mild disease nonobstructive disease Right Coronory Artery has severe stenosis of the proximal and midportion eccentric plaque with 90 percent stenosis, the artery was totally occluded with the balloon without inflating the balloon, successful balloon angioplasty then deployment of 3 x 28 Ina stent expanded to 3.68 mm with noncompliant balloon with excellent results LV Gram was not done pressure was measured Aorta evaluation done with aortic arch angiogram showing normal aortic arch, no dissection or aneurysm, normal innominate artery, normal left carotid and left subclavian artery Abdominal aortogram done in the AP position showed no significant dissection or aneurysm, mild atherosclerotic plaque, normal renal artery and inferior mesenteric artery Repeat abdominal aortogram done to evaluate the bifurcation which showed severe stenosis at the bifurcation in the right common iliac artery Runoff of the left leg done through the sheath showing good flow down to the trifurcation Runoff of the right leg done through the rim catheter at the common iliac artery showing good flow down to the trifurcation CONCLUSION: 1. Severe long segment stenosis in the proximal and midright coronary artery with deployment of the long Ina 3 x 28 stent expanded to 3.68 mm with excellent results 2. Mild to moderate disease in the proximal and mid LAD, mild disease in the circumflex artery 3. Normal aortic arch and great vessels of the neck 4. Normal left ventricular end-diastolic pressure 5. Normal abdominal aorta and renal arteries 6. Severe right common iliac artery stenosis, question of hypoplastic 7. Good runoff in both legs down to the trifurcation DISCUSSION AND RECOMMENDATION: patient was started on aspirin and Plavix continue to maximize medical therapy, consideration for intervention on the right common iliac artery versus surgery, patient will require kissing iliac stents Anesthesia Type: Conscious Sedation Estimated blood loss (mL): 35 ml Contrast Amount: 150 ml Total Radiation Dose: 839 mGy Post-Procedure Diagnosis Post-operative diagnosis: Coronary artery disease Peripheral arterial disease Hypertension Hyperlipidemia NATI FLORES MD Apr 29, 2019 09:33 POS
--- NOTE | 2019-04-29 09:50 | NUR ---
Pt arrived to room 509 via bed with nurse at bedside. VSS. Patient is alert and oriented. Puncture site to left groin, gauze and opsite in place, dressing is clean dry and intact. Patient arrived with 10lb sand bag to left groin site. This nurse assessed and palpated left groin puncture site, no signs of bleeding noted by this nurse, no bruising or discoloration noted, no edges or ridges to site, sand bag left in place for precautions, will continue to closely monitor.
[2019-04-29] MEDS: NS IV 1000 ML 1,000 ML IV SCH ×2 (13:21→22:26)
[2019-04-29] MEDS ORDERED: DIVALPROEX EXT RELEASE 500 MG (DEPAKOTE ER) TAB PO SCH (21:00)
[2019-04-30 00:36] VITALS: BP 130/85
[2019-04-30 03:48] VITALS: BP 122/88
[2019-04-30 04:24] LABS: HEMOGLOBIN 14.5 G/DL (13.3-17.7); MEAN PLATELET VOLUME 11.3 FL (7.4-10.4); RED CELL DISTRIBUTION WIDTH 13.3 % (10.0-14.5); WHITE BLOOD COUNT 7.2 10^3/uL (4.3-11.0)
[2019-04-30 04:48] LABS: BUN/CREATININE RATIO 17; CALCIUM 9.2 MG/DL (8.5-10.1); CARBON DIOXIDE 24 MMOL/L (21-32); CHLORIDE 103 MMOL/L (98-107); CREATININE SERUM 0.75 MG/DL (0.60-1.30); GFR ESTIMATED > 60; GLUCOSE 112 MG/DL (70-105); POTASSIUM 4.3 MMOL/L (3.6-5.0); SODIUM 138 MMOL/L (135-145)
[2019-04-30] MEDS ORDERED: CLOP75TA28 PO (08:24)
--- NOTE | 2019-04-30 08:24 | Discharge Inst-Post CATH ---
Discharge Inst-CATH/EP Problems Reviewed?: Yes Post Cardiac Cath/EP D/C Inst Follow Up/Plan Appointment with Dr. Mcdowell's office in 2-4 weeks <b>CARDIAC CATH/EP PROCEDURE DISCHARGE INSTRUCTIONS</b> ACTIVITY * Go Home directly and rest. * Limit activity of the leg (or wrist if it was used) for 7 days including aerob ics, swimming, jogging, bicycling, etc. * Restrict stair-climbing for 7 days if possible, if not, climb up with your non-cath leg, then bring together on the same step. * Avoid lifting, pushing, pulling or excessive movement of the affected extremity for 7 days. * Customary sexual activity may be resumed after 2 days-use caution not to use a position that strains or causes pain to the affected extremity. * No driving for 24 hours. * NO SMOKING. * Avoid straining for bowel movements for 7 days. * Gentle walking on level ground is allowed. * Returning to work will depend on the type of procedure and the results. Your doctor will discuss this with you. CALL YOUR DOCTOR FOR ANY OF THE FOLLOWING: *If bleeding from the puncture site occurs- Apply gentle pressure to site with clean cloth and call your doctor or EMS. * If a knot or lump forms under the skin, increases in size, or causes pain. * If bruising appears to be worsening or moving further down your leg instead of disappearing. * Temperature above 101 F. CARE OF YOUR GROIN INCISION; * Bruising or purple discoloration of the skin near the puncture site is common. * You may shower only, no bathtub bathing for 5 days. Be careful to avoid slipping as your leg may feel stiff. * If a closure device was used on your femoral artery, please see the attached guide regarding care of the device and your leg. * Leave dressing on FOR 24 hours. CARE OF YOUR WRIST INCISION; * Bruising or purple discoloration of the skin near the puncture site is common. * You may shower. * DO NOT submerge wrist. * Leave dressing on FOR 24 hours. NATI MCDOWELL MD Apr 30, 2019 08:24 POS
--- NOTE | 2019-04-30 08:26 | Cardiology Progress Note ---
Subjective Date Seen by Provider: Apr 30, 2019 Time Seen by Provider: 08:25 Subjective/Events-last exam Patient is laying down in bed, feeling better. No new complaint, groin is healing well Review of Systems General: No Chills, No Night Sweats, No Fatigue, No Malaise, No Appetite, No Other HEENT: No Head Aches, No Visual Changes, No Eye Pain, No Ear Pain, No Dysph maye, No Sinus Congestion, No Post Nasal Drip, No Sore Throat, No Other Pulmonary: No Dyspnea, No Cough, No Pleuritic Chest Pain, No Other Cardiovascular: No: Chest Pain, Palpitations, Orthopnea, Paroxysmal Noc. Dyspnea, Edema, Lt Headedness, Other Objective-Cardiology Exam Last Set of Vital Signs Vital Signs 04/30/19 03:48 Temp 37.2 Pulse 79 Resp 18 B/P (MAP) 122/88 (99) Pulse Ox 97 O2 Delivery Room Air Capillary Refill : Less Than 3 Seconds I&O Intake and Output 04/30/19 00:00 Intake Total 1500 ml Output Total 600 ml Balance 900 ml Intake Oral 500 ml IV Total 1000 ml Output Urine Total 600 ml # Voids 3 General: Alert, Oriented X3, Cooperative HEENT: Atraumatic, PERRLA Neck: Supple, No JVD, No Thyromegaly Lungs: Clear to Auscultation, Normal Air Movement Heart: Regular Rate, Normal S1, Normal S2, No Murmurs Abdomen: Normal Bowel Sounds, Soft, No Tenderness, No Hepatosplenomegaly, No Masses Extremities: No Clubbing, No Cyanosis, No Edema, Normal Pulses, No Tenderness/Swelling Skin: No Rashes, No Breakdown, No Significant Lesion Neuro: Normal Gait, Normal Speech, Strength at 5/5 X4 Ext, Normal Tone, Sensation Intact Psych/Mental Status: Mental Status NL, Mood NL Results Lab Laboratory Tests 04/30/19 03:42 A/P-Cardiology Admission Diagnosis Coronary artery disease Claudication Hypertension Hyperlipidemia Assessment/Plan Coronary artery disease status post stent deployment to the right coronary artery with excellent results. Educated on taking aspirin and Plavix daily Claudication, peripheral arterial disease, severe right common iliac artery sten osis, will require kissing iliac stents, we discussed the possibility of doing the procedure at a tertiary care center with vascular surgery Hypertension, continue current medication monitor blood pressure next Hyperlipidemia. Continue statin Cardiac catheter findings 1. Severe long segment stenosis in the proximal and midright coronary artery with deployment of the long Ina 3 x 28 stent expanded to 3.68 mm with excellent results 2. Mild to moderate disease in the proximal and mid LAD, mild disease in the circumflex artery 3. Normal aortic arch and great vessels of the neck 4. Normal left ventricular end-diastolic pressure 5. Normal abdominal aorta and renal arteries 6. Severe right common iliac artery stenosis, question of hypoplastic 7. Good runoff in both legs down to the trifurcation NATI FLORES MD Apr 30, 2019 08:26 POS
[2019-04-30 08:30] VITALS: BP 147/91
[2019-04-30] MEDS ORDERED: ASPIRIN E.C. 81 MG (ECOTRIN) TAB PO SCH (09:00)
[2019-04-30] MEDS ORDERED: NON-FORMULARY MEDICATION 1 EA EA (Amlodipine Besylate 10 MG) PO SCH (09:00)
[2019-04-30] MEDS ORDERED: CLOPIDOGREL 75 MG (PLAVIX) TABLET PO SCH (09:00)
[2019-04-30] MEDS ORDERED: amLODIPine 10 MG (NORVASC) TAB PO SCH (09:00)
[2019-04-30] MEDS ORDERED: DIVALPROEX EXT RELEASE 500 MG (DEPAKOTE ER) TAB PO SCH (09:00)
[2019-04-30] MEDS ORDERED: lisINopril 20 MG (PRINIVIL) TABLET PO SCH (09:00)
[2019-04-30] MEDS ORDERED: PANTOPRAZOLE 40 MG (PROTONIX) TAB PO SCH (09:00)
== END 2019-04-30 10:00 | disposition home or self-care (01) ==
LOC: CATH 06:48 → CSD 09:59 → CATH 04-30 10:00
PROVIDERS: ATTEND Internal Medicine Cardiovascular Disease
DX: I25.10 Atherosclerotic heart disease of native coronary artery without angina pectoris (principal); I73.9 Peripheral vascular disease, unspecified; I25.2 Old myocardial infarction; I11.9 Hypertensive heart disease without heart failure; E78.5 Hyperlipidemia, unspecified; E78.2 Mixed hyperlipidemia; M19.90 Unspecified osteoarthritis, unspecified site; F17.210 Nicotine dependence, cigarettes, uncomplicated; Z88.1 Allergy status to other antibiotic agents; Z79.82 Long term (current) use of aspirin; Z79.899 Other long term (current) drug therapy; Z83.3 Family history of diabetes mellitus; Z82.49 Family history of ischemic heart disease and other diseases of the circulatory system
CPT/HCPCS: 36221; 36415; 71045; 75625; 75716; 80048; 80053; 80061; 81000; 85027; 85610; 85730; 87081; 93005; 93458

== ENCOUNTER 2019-05-28 14:55 | Inpatient (IN) | payer OTHER ==
[~2019-05-28] VITALS: Ht 180 cm; Wt 82.9 kg
[~2019-05-28 14:55] MED LIST changes: +AMLO10TA7 PO; +ASPI-983 PO; +ATOR40TA70 PO; +CLOP75TA28 PO; +METO-387 PO; +PANT40TA3 PO
[2019-05-28] MEDS ORDERED: ASPIRIN 81 MG CHEW (CHILDREN'S ASA) PO ONE (16:00)
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
--- NOTE | 2019-05-28 16:20 | Diagnostic Imaging Report ---
INDICATION: Chest pain. Frontal chest obtained at 03:47 p.m. Heart and mediastinal silhouette are normal in appearance. The lungs are clear. There is no pneumothorax or pleural fluid. IMPRESSION: Negative chest. Dictated by: Dictated on workstation # [id number]
[2019-05-28 16:31] LABS: HEMATOCRIT 44 % (40-54); HEMOGLOBIN 15.2 G/DL (13.3-17.7); LYMPHOCYTES % (AUTO) 32 % (12-44); MEAN CORPUSCULAR HEMOGLOBIN 33 PG (25-34); MEAN CORPUSCULAR HGB CONC 35 G/DL (32-36); MEAN CORPUSCULAR VOLUME 94 FL (80-99); MEAN PLATELET VOLUME 10.8 FL (7.4-10.4); NEUTROPHILS % (AUTO) 53 % (42-75); PLATELET COUNT 133 10^3/uL (130-400); RED CELL DISTRIBUTION WIDTH 12.6 % (10.0-14.5); WHITE BLOOD COUNT 8.4 10^3/uL (4.3-11.0)
[2019-05-28 16:32] LABS: BASOPHILS # (AUTO) 0.1 10^3/uL (0.0-0.1); BASOPHILS % (AUTO) 1 % (0-10); EOSINOPHILS # (AUTO) 0.2 10^3/uL (0.0-0.3); EOSINOPHILS % (AUTO) 3 % (0-10); LYMPHOCYTES # (AUTO) 2.7 X 10^3 (1.0-4.0); MONOCYTES # (AUTO) 0.9 X 10^3 (0.0-1.0); MONOCYTES % (AUTO) 10 % (0-12); NEUTROPHILS # (AUTO) 4.4 X 10^3 (1.8-7.8)
[2019-05-28 16:35] LABS: ALANINE AMINOTRANSFERASE 42 U/L (0-55); ALKALINE PHOSPHATASE 74 U/L (40-136); BILIRUBIN,TOTAL 0.3 MG/DL (0.1-1.0); BUN/CREATININE RATIO 23; CALCIUM 9.2 MG/DL (8.5-10.1); CARBON DIOXIDE 26 MMOL/L (21-32); CHLORIDE 96 MMOL/L (98-107); CREATININE SERUM 0.78 MG/DL (0.60-1.30); GFR ESTIMATED > 60; GLUCOSE 105 MG/DL (70-105); MAGNESIUM 1.9 MG/DL (1.6-2.4); POTASSIUM 4.2 MMOL/L (3.6-5.0); SODIUM 134 MMOL/L (135-145); TOTAL PROTEIN 7.9 GM/DL (6.4-8.2)
[2019-05-28 16:36] LABS: LIPASE 56 U/L (8-78)
--- NOTE | 2019-05-28 17:44 | NUR ---
Ems requested for transport to [place].
[2019-05-28] MEDS ORDERED: ONDANSETRON 4 MG/2 ML (SDV) Z0FRAN IVP PRN (19:00)
[2019-05-28] MEDS ORDERED: NITROGLYCERIN 0.4 MG SL TABS BTL 25'S SL PRN (19:00)
[2019-05-28] MEDS ORDERED: PATIENT MAY USE OWN MEDS, ALL PO SCH (19:00)
[2019-05-28] MEDS ORDERED: morphine INJ 4 MG/ML 1 ML (VIAL/SYRINGE) IV PRN (19:00)
[2019-05-28 19:30] VITALS: BP 120/83
[2019-05-28 20:00] VITALS: BP 115/79
[2019-05-28] MEDS ORDERED: CATHETER FLUSH 10 ML SYR IV PRN (20:00)
[2019-05-28 21:47] VITALS: BP 120/83
[2019-05-28] MEDS: DIVALPROEX EXT RELEASE 500 MG (DEPAKOTE ER) TAB PO SCH (22:10)
[2019-05-28] MEDS: CATHETER FLUSH 10 ML SYR IV SCH (22:10)
[2019-05-28 23:53] VITALS: BP 122/81
[2019-05-29] VITALS (13 sets, daily range): BP systolic 114–135; BP diastolic 83–97
[2019-05-29 03:38] LABS: MEAN PLATELET VOLUME 10.7 FL (7.4-10.4); RED CELL DISTRIBUTION WIDTH 13.2 % (10.0-14.5); WHITE BLOOD COUNT 6.1 10^3/uL (4.3-11.0)
[2019-05-29 04:07] LABS: ALANINE AMINOTRANSFERASE 44 U/L (0-55); ALBUMIN 3.6 GM/DL (3.2-4.5); ALKALINE PHOSPHATASE 68 U/L (40-136); BILIRUBIN,TOTAL 0.4 MG/DL (0.1-1.0); BUN/CREATININE RATIO 21; CARBON DIOXIDE 23 MMOL/L (21-32); CHLORIDE 102 MMOL/L (98-107); CHOLESTEROL 114 MG/DL (< 200); CREATININE SERUM 0.73 MG/DL (0.60-1.30); GFR ESTIMATED > 60; GLUCOSE 101 MG/DL (70-105); HDL CHOLESTEROL 19 MG/DL (40-60); POTASSIUM 3.9 MMOL/L (3.6-5.0); SODIUM 136 MMOL/L (135-145); TOTAL PROTEIN 7.1 GM/DL (6.4-8.2); TRIGLYCERIDES 112 MG/DL (<150); VLDL CHOLESTEROL 22 MG/DL (5-40)
[2019-05-29 04:08] LABS: CHOLESTEROL 113 MG/DL (< 200); HDL CHOLESTEROL 18 MG/DL (40-60); TRIGLYCERIDES 110 MG/DL (<150); VLDL CHOLESTEROL 22 MG/DL (5-40)
[2019-05-29] MEDS: CATHETER FLUSH 10 ML SYR IV SCH ×3 (06:00→22:33)
--- NOTE | 2019-05-29 07:54 | Consultation-Cardiology ---
HPI-Cardiology Cardiology Consultation Date of Consultation 05/29/19 Date of Admission Time Seen by Provider: 07:49 Indication: Chest pain HPI 59-year-old gentleman with history of coronary artery disease status post recent stent to the right coronary artery, severe right iliac artery stenosis. Was seen in my office recently and was feeling well. That evening started to have c hest pain, described as severe retrosternal pain radiating to both sides of his chest. No palpitation. No syncope. Given nitroglycerin with some relief. Still having mild chest discomfort at this time. We discussed the management plan I recommended reevaluating coronary anatomy Home Medications & Allergies Allergies: Coded Allergies: azithromycin (Verified Allergy, Unknown, headaches, 02/04/17) Home Medication List Reviewed: Yes BDO-Niodvv-Oprljj Hx Patient Social History Marital Status: Employed/Student: employed Alcohol Use: Denies Use Recreational Drug Use: Yes Drug of Choice: MARIJUANA- daily Smoking Status: Current Everyday Smoker Type Used: Cigarettes 2nd Hand Smoke Exposure: Yes Recent Foreign Travel: No Recent Infectious Disease Expo: No Recent Hopitalizations: No Immunizations Up To Date Tetanus Booster (TDap): Unknown Date of Pneumonia Vaccine: Mar 20, 2019 Date of Influenza Vaccine: Mar 20, 2019 Past Medical History Discussed below Family Medical History Family Medical Hx Noncontributory Review of Systems-General Review of Systems Constitutional: No chills, No diaphoresis EENTM: see HPI, no symptoms reported Respiratory: no symptoms reported, see HPI Cardiovascular: see HPI, chest pain; No edema, No Hx of Intervention, No palpitations, No syncope, No vascular heart diseas, No other Gastrointestinal: no symptoms reported, see HPI Genitourinary: no symptoms reported, see HPI Musculoskeletal: see HPI; No back pain, No joint pain Skin: no symptoms reported, see HPI Psychiatric/Neurological: No Symptoms Reported, See HPI All Other Systems Reviewed Negative Unless Noted: Yes Reviewed Test Results Reviewed Test Results Lab Laboratory Tests Test 05/28/19 15:10 05/28/19 20:25 05/29/19 02:50 Range/Units White Blood Count 8.4 6.1 4.3-11.0 10^3/uL Red Blood Count 4.66 4.40 4.35-5.85 10^6/uL Hemoglobin 15.2 14.0 13.3-17.7 G/DL Hematocrit 44 41 40-54 % Mean Corpuscular Volume 94 93 80-99 FL Mean Corpuscular Hemoglobin 33 32 25-34 PG Mean Corpuscular Hemoglobin Concent 35 34 32-36 G/DL Red Cell Distribution Width 12.6 13.2 10.0-14.5 % Platelet Count 133 107 L 130-400 10^3/uL Mean Platelet Volume 10.8 H 10.7 H 7.4-10.4 FL Neutrophils (%) (Auto) 53 42-75 % Lymphocytes (%) (Auto) 32 12-44 % Monocytes (%) (Auto) 10 0-12 % Eosinophils (%) (Auto) 3 0-10 % Basophils (%) (Auto) 1 0-10 % Neutrophils # (Auto) 4.4 1.8-7.8 X 10^3 Lymphocytes # (Auto) 2.7 1.0-4.0 X 10^3 Monocytes # (Auto) 0.9 0.0-1.0 X 10^3 Eosinophils # (Auto) 0.2 0.0-0.3 10^3/uL Basophils # (Auto) 0.1 0.0-0.1 10^3/uL Prothrombin Time 14.0 12.2-14.7 SEC INR Comment 1.0 0.8-1.4 Activated Partial Thromboplast Time 31 24-35 SEC D-Dimer 0.53 H 0.00-0.49 UG/ML Sodium Level 134 L 136 135-145 MMOL/L Potassium Level 4.2 3.9 3.6-5.0 MMOL/L Chloride Level 96 L 102 98-107 MMOL/L Carbon Dioxide Level 26 23 21-32 MMOL/L Anion Gap 12 11 5-14 MMOL/L Blood Urea Nitrogen 18 15 7-18 MG/DL Creatinine 0.78 0.73 0.60-1.30 MG/DL Estimat Glomerular Filtration Rate > 60 > 60 BUN/Creatinine Ratio 23 21 Glucose Level 105 101 70-105 MG/DL Calcium Level 9.2 9.0 8.5-10.1 MG/DL Corrected Calcium 9.2 9.3 8.5-10.1 MG/DL Magnesium Level 1.9 1.6-2.4 MG/DL Total Bilirubin 0.3 0.4 0.1-1.0 MG/DL Aspartate Amino Transf (AST/SGOT) 47 H 46 H 5-34 U/L Alanine Aminotransferase (ALT/SGPT) 42 44 0-55 U/L Alkaline Phosphatase 74 68 40-136 U/L Myoglobin < 21.0 10.0-92.0 NG/ML Troponin I < 0.30 < 0.028 < 0.028 <0.028 NG/ML Pro-B-Type Natriuretic Peptide 125.1 H <75.0 PG/ML Total Protein 7.9 7.1 6.4-8.2 GM/DL Albumin 4.0 3.6 3.2-4.5 GM/DL Lipase 56 8-78 U/L Triglycerides Level 112 <150 MG/DL Cholesterol Level 114 < 200 MG/DL LDL Cholesterol Direct 82 1-129 MG/DL VLDL Cholesterol 22 5-40 MG/DL HDL Cholesterol 19 L 40-60 MG/DL Physical Exam Physical Exam Vital Signs Vital Signs - First Documented 05/28/19 15:05 Temp 36.3 Pulse 83 Resp 18 B/P (MAP) 150/93 (112) Pulse Ox 99 O2 Delivery Room Air Capillary Refill : Less Than 3 Seconds Height, Weight, BMI Height: 5'11.00" Weight: 172lbs. 0.0oz. 78.255460th; 24.00 BMI Method:Stated General Appearance: No Apparent Distress, WD/WN HEENT: PERRL/EOMI; No Pharynx Normal (poor dentition); Moist Mucous Membranes Neck: Full Range of Motion, Normal Inspection, Non Tender, Supple Respiratory: Chest Non Tender, Lungs Clear, Normal Breath Sounds, No Accessory Muscle Use, No Respiratory Distress Cardiovascular: Regular Rate, Rhythm, No Edema, No Murmur, Normal Peripheral Pulses Gastrointestinal: Normal Bowel Sounds, No Organomegaly, No Pulsatile Mass, Non Tender, Soft Extremity: Normal Capillary Refill, Normal Inspection, Non Tender, No Calf Tenderness, No Pedal Edema Neurologic/Psychiatric: Alert, Oriented x3, No Motor/Sensory Deficits Skin: Normal Color, Warm/Dry A/P-Cardiology Admission Diagnosis Unstable angina Coronary artery disease Hypertension Peripheral arterial disease Assessment/Plan Chest pain nonspecific etiology, increasing dyspnea on exertion, resembling unstable angina. Had recent stent to the right coronary artery, has borderline lesion in the circumflex artery. Coronary artery disease, cardiac catheterization showed severe long segment stenosis at the midright coronary artery with deployment of long Ina 3 x 28 mm stent expanded to 3.68 mm with good results, mild to moderate disease in the proximal and mid LAD, mild disease in left circumflex artery has a borderline lesion. I will reevaluate coronary anatomy. Claudication, had severe right common iliac artery stenosis with questionable hypoplasia, he was referred for evaluation with the vascular surgeon 20 mmHg discrepancy between the right and left arm, carotid ultrasound showed mild bilateral disease nonobstructive disease Hypertension, better. Continue to monitor Hyperlipidemia, started on statin Tobaccoism, educated on smoking cessation Hepatitis C, diagnosed and managed with [facility] and starting on treatment. Clinical Quality Measures AMI/AHF: ASA po Prior to arrival: Yes (81mg) DVT/VTE Risk/Contraindication: Risk Factor Score Per Nursin RFS Level Per Nursing on Admit: 3=High NATI FLORES MD May 29, 2019 07:54
--- NOTE | 2019-05-29 07:54 | Cardiac Procedure Note-CS/ASA ---
Pre-Procedure Note Pre-Op Procedure Note H&P Reviewed The H&P was reviewed, patient examined and no changes noted. Date H&P Reviewed: May 29, 2019 Time H&P Reviewed: 07:54 Conscious Sedation Pre-Proced Time 07:54 ASA Score 3 For ASA 3 and 4: Consider anesthesia and medical clearance. Also, for patients with a history of failed moderate sedation consider anesthesia. Airway Lungs Heart ASA score ASA 1: a normal healthy patient ASA 2: a patient with a mild systemic disease (mid diabetes, controlled hypertension, obesity x ASA 3: a patient with a severe systemic disease that limits activity (angina, COPD, prior Myocardial infarction) ASA 4: a patient with an incapacitating disease that is a constant threat to life (CHF, renal failure) ASA 5: a moribund patient not expected to survive 24 hrs. (ruptured aneurysm) ASA 6: a declared brain- patient whose organs are being harvested. For emergent operations, add the letter E after the classification Mallampati Classification Grade 3 Sedation Plan Analgesia, Amnesia, Plan communicated to team members, Discussed options with patient/fam, Discussed risks with patient/fam The patient is an appropriate candidate to undergo the planned procedure, sedation, and anesthesia. The patient immediately re-assessed prior to indication. NATI FLORES MD May 29, 2019 07:54
[2019-05-29] MEDS ORDERED: NS IV 1000 ML 1,000 ML IV SCH (08:00)
[2019-05-29] MEDS: DIVALPROEX EXT RELEASE 500 MG (DEPAKOTE ER) TAB PO SCH ×2 (08:16→20:41)
[2019-05-29] MEDS ORDERED: LIDOCAINE 1% INJ 20 ML 20 ML VIAL ONE ×2 (08:57→12:27)
[2019-05-29] MEDS ORDERED: HEParin 1000 UNIT/ML (10ML VIAL) FOR BOLUS ONE (08:57)
[2019-05-29] MEDS ORDERED: NS IV 1000 ML 2,000 ML ONE (08:58)
[2019-05-29] MEDS ORDERED: PANTOPRAZOLE 40 MG (PROTONIX) TAB PO SCH (09:00)
[2019-05-29] MEDS ORDERED: ASPIRIN E.C. 81 MG (ECOTRIN) TAB PO SCH ×2 (09:00)
[2019-05-29] MEDS ORDERED: CLOPIDOGREL 75 MG (PLAVIX) TABLET PO SCH (09:00)
[2019-05-29] MEDS ORDERED: fentaNYL INJECTION 100 MCG/2 ML AMP ONE (11:18)
[2019-05-29] MEDS ORDERED: MIDAZOLAM 5 MG/5 ML (VERSED) VIAL ONE (11:18)
[2019-05-29] MEDS ORDERED: PATIENT MAY USE OWN MEDS, ALL PO SCH (14:00)
--- NOTE | 2019-05-29 14:03 | Cardiac Cath Report ---
Cardiac Cath Report Physician (s)/[facility] [facility] (s) Physician NATI FLORES MD Pre-Procedure Diagnosis Pre-Procedure Diagnosis: Coronary artery disease, peripheral arterial disease Post-Procedure Note Procedure Start Date: May 29, 2019 Name of Procedure: Left heart catheterization Stent to the right iliac artery Findings/Procedure Note PROCEDURE NOTE: 59-year-old gentleman known to have coronary artery disease had a stent to the right coronary artery in April 2019, admitted with chest pain, known to have severe iliac stenosis, is planning to do coronary angiogram then considering intervention on the right iliac artery. After explaining the procedure to the patient, all pros and cons were explained, all questions were answered. The patient signed the consent and then he was placed on the cardiac catheterization laboratory. Groin was prepped SL fashion local anesthesia was used. Sheath placed in the right femoral artery. I tried to advance a wire and it appeared that it went through dissection flap up to the bifurcation. I retracted the wire and proceeded with placement of 6 Spanish sheath at the left femoral artery, had small hematoma at the left groin. I advanced a pigtail catheter and did angiogram which showed large dissection in the right common iliac artery. Using a REM catheter I advanced a stork wire and then I advanced Grady 4 x 20 balloon and did multiple inflation established aluminum then exchanged into 6 x 100 balloon and did multiple inflation, angiogram showed still having significant stenosis at the ostial iliac artery. Which has been known, had diffuse ectasia in the artery and still have some residual dissection. At that point I proceeded with heart catheterization using Tiara right and left catheters and did angiogram then advanced the pigtail catheter to the left ventricular cavity pressure was measured pullback LV to aorta was done then pulled pigtail down to the bifurcation and repeat angiogram showed persistent of the stenosis and dissection. Subsequently I decided to proceed with stenting of the iliac artery. Patient was given 4000 units of heparin then a new 6 Spanish sheath was placed in the right femoral artery, advanced the J-wire without difficulty did angiogram check the position then I proceeded with deployment of Omnilink Elite 7 x 59 stent expanded to 7.2 mm with excellent results. At the end of the procedure the sheath was removed. Closure device failed to deploy in the right groin, manual pressure was held then the left groin sheath was sutured in place FINDINGS: Hemodynamics LV 143/16, end-diastolic pressure of 16 Aorta 144/81 mean of 80 ANATOMY: Left Main has mild disease Left Anterior Descending has [id number]-[id number] disease Left Circumflex has mild aneurysmal dilatation with moderate disease at the midportion Right Coronory Artery has a patent long stent proximally with no obstructive disease LV Gram was not done, pressure was measured Aorta evaluation done with a pigtail just above the bifurcation showing mild ectasia in the abdominal aorta and bilateral lower extremities, severe stenosis of the right iliac artery, has significant dissection, successful intervention with deployment of Omnilink Elite 7 x 59 stent with excellent results CONCLUSION: 1. Patent stent in the right coronary artery 2. Mild aneurysmal dilatation in the proximal circumflex artery with moderate stenoses nonobstructive disease, mild disease in the LAD 3. Normal left ventricular end-diastolic pressure 4. Severe stenosis at the right iliac artery with dissection during the procedure, complex intervention the deployment of Omnilink Elite 7 x 59 stent with excellent results and resolution of the stenosis DISCUSSION AND RECOMMENDATION: continue with medical therapy. Anesthesia Type: Conscious Sedation Estimated blood loss (mL): 50 ml Contrast Amount: 162 ml Total Radiation Dose: 773 mGy Post-Procedure Diagnosis Post-operative diagnosis: Chest pain Claudication Coronary artery disease Peripheral arterial disease NATI FLORES MD May 29, 2019 14:03
[2019-05-29] MEDS ORDERED: RT-ALBUINH IH (14:04)
[2019-05-29] MEDS ORDERED: FLUT1DIS26 IH (14:04)
[2019-05-29] MEDS ORDERED: SOFO1TAB PO (14:04)
--- NOTE | 2019-05-29 15:35 | History & Physical ---
HPI History of Present Illness: 59 yo male came to ER due to severe chest pain, he thought was reflux at first, but it go to be more severe than anything he has ever had in the past and he has history of relatively recent coronary stenting. Today he is pain free. Source: patient Date seen by provider: May 29, 2019 Time Seen by Provider: 10:40 Attending Physician Cedric Villanueva MD PCP Oleksandr,Ru CHAVEZ Consult Date of Admission May 28, 2019 at 17:07 Home Medications Home Medications Reviewed patient Home Medication Reconciliation performed by pharmacy medication reconciliations equipment engineering technician and/or nursing. Patients Allergies have been reviewed. Allergies Coded Allergies: azithromycin (Verified Allergy, Unknown, headaches, 02/04/17) PAF-Ijhyyv-Lyiuom Hx Patient Social History Marrital Status: Employed/Student: employed Alcohol Use: Past History (previous alcoholism, quit around 1989) Recreational Drug Use: Yes Drug of Choice: MARIJUANA, cutting down; history of other substances last use Smoking Status: Current Everyday Smoker Type Used: Cigarettes 2nd Hand Smoke Exposure: Yes Recent Foreign Travel: No Contact w/other who traveled: No Recent Hopitalizations: No Recent Infectious Disease Expo: No Immunizations Up To Date Tetanus Booster (TDap): Unknown Date of Pneumonia Vaccine: Mar 20, 2019 Date of Influenza Vaccine: Mar 20, 2019 Past Medical History PMHx: HTN Hep C HLD CAD Seizure disorder SurgHx: Coronary artery stenting Family Medical History Significant Family History: Heart Disease, Diabetes Review of Systems ([facility]) Constitutional: No fever EENTM: nose congestion (relates to allergies) Respiratory: No cough Cardiovascular: see HPI Gastrointestinal: No abdominal pain, No constipation, No diarrhea; nausea; No vomiting Genitourinary: No dysuria Musculoskeletal: muscle pain (left arm chronic pain) Skin: No rash Psychiatric/Neurological: No Symptoms Reported Reviewed Test Results Reviewed Test Results Lab Laboratory Tests Test 05/28/19 15:10 05/28/19 20:25 05/29/19 02:50 Range/Units White Blood Count 8.4 6.1 4.3-11.0 10^3/uL Red Blood Count 4.66 4.40 4.35-5.85 10^6/uL Hemoglobin 15.2 14.0 13.3-17.7 G/DL Hematocrit 44 41 40-54 % Mean Corpuscular Volume 94 93 80-99 FL Mean Corpuscular Hemoglobin 33 32 25-34 PG Mean Corpuscular Hemoglobin Concent 35 34 32-36 G/DL Red Cell Distribution Width 12.6 13.2 10.0-14.5 % Platelet Count 133 107 L 130-400 10^3/uL Mean Platelet Volume 10.8 H 10.7 H 7.4-10.4 FL Neutrophils (%) (Auto) 53 42-75 % Lymphocytes (%) (Auto) 32 12-44 % Monocytes (%) (Auto) 10 0-12 % Eosinophils (%) (Auto) 3 0-10 % Basophils (%) (Auto) 1 0-10 % Neutrophils # (Auto) 4.4 1.8-7.8 X 10^3 Lymphocytes # (Auto) 2.7 1.0-4.0 X 10^3 Monocytes # (Auto) 0.9 0.0-1.0 X 10^3 Eosinophils # (Auto) 0.2 0.0-0.3 10^3/uL Basophils # (Auto) 0.1 0.0-0.1 10^3/uL Prothrombin Time 14.0 12.2-14.7 SEC INR Comment 1.0 0.8-1.4 Activated Partial Thromboplast Time 31 24-35 SEC D-Dimer 0.53 H 0.00-0.49 UG/ML Sodium Level 134 L 136 135-145 MMOL/L Potassium Level 4.2 3.9 3.6-5.0 MMOL/L Chloride Level 96 L 102 98-107 MMOL/L Carbon Dioxide Level 26 23 21-32 MMOL/L Anion Gap 12 11 5-14 MMOL/L Blood Urea Nitrogen 18 15 7-18 MG/DL Creatinine 0.78 0.73 0.60-1.30 MG/DL Estimat Glomerular Filtration Rate > 60 > 60 BUN/Creatinine Ratio 23 21 Glucose Level 105 101 70-105 MG/DL Calcium Level 9.2 9.0 8.5-10.1 MG/DL Corrected Calcium 9.2 9.3 8.5-10.1 MG/DL Magnesium Level 1.9 1.6-2.4 MG/DL Total Bilirubin 0.3 0.4 0.1-1.0 MG/DL Aspartate Amino Transf (AST/SGOT) 47 H 46 H 5-34 U/L Alanine Aminotransferase (ALT/SGPT) 42 44 0-55 U/L Alkaline Phosphatase 74 68 40-136 U/L Myoglobin < 21.0 10.0-92.0 NG/ML Troponin I < 0.30 < 0.028 < 0.028 <0.028 NG/ML Pro-B-Type Natriuretic Peptide 125.1 H <75.0 PG/ML Total Protein 7.9 7.1 6.4-8.2 GM/DL Albumin 4.0 3.6 3.2-4.5 GM/DL Lipase 56 8-78 U/L Triglycerides Level 112 <150 MG/DL Cholesterol Level 114 < 200 MG/DL LDL Cholesterol Direct 82 1-129 MG/DL VLDL Cholesterol 22 5-40 MG/DL HDL Cholesterol 19 L 40-60 MG/DL Radiology CXR 05/28 hitchcock Physical Exam-([facility]) Physical Exam Vital Signs VS - Last 72 Hours, by Label 05/28/19 05/28/19 05/28/19 05/28/19 15:05 15:05 18:37 19:16 Temp 36.3 Pulse 83 81 80 Resp 18 14 B/P (MAP) 150/93 (112) 146/90 Pulse Ox 99 98 O2 Delivery Room Air Room Air 05/28/19 05/28/19 05/28/19 05/28/19 19:30 20:00 20:00 20:00 Temp 36.1 Pulse 82 81 Resp 16 18 B/P (MAP) 120/83 (95) 115/79 (91) Pulse Ox 96 98 96 O2 Delivery Room Air Room Air Room Air Room Air 05/28/19 05/28/19 05/29/19 05/29/19 23:53 23:54 01:00 04:00 Temp 36.5 Pulse 80 80 Resp 18 B/P (MAP) 122/81 (95) Pulse Ox 97 O2 Delivery Room Air Room Air Room Air 05/29/19 05/29/19 05/29/19 05/29/19 04:23 06:45 08:00 09:00 Temp 36.8 Pulse 86 74 Resp 18 B/P (MAP) 126/84 (98) Pulse Ox 98 96 O2 Delivery Room Air Room Air Room Air 05/29/19 12:00 O2 Delivery Room Air Capillary Refill : Less Than 3 Seconds General Appearance: no apparent distress HEENT: other (poor dentition) Respiratory: lungs clear, normal breath sounds Cardiovascular: regular rate, rhythm, no murmur Gastrointestinal: normal bowel sounds, non tender, soft Extremities: no pedal edema Neurologic/Psychiatric: alert, normal mood/affect Skin: normal color, warm/dry Assessment/Plan Assessment/Plan Admission Status: Inpatient Order (span 2 midnights) Reason for Inpatient Admission: Chest pain with recent coronary artery stenting requiring repeat cath (1) Unstable angina Status: Acute Assessment & Plan: Troponin neg, Cardiology consulted, appreciate recommendations, plan for cath today. (2) Hypertension Status: Chronic Assessment & Plan: Resume home meds Qualifiers: Qualified Codes: I10 - Essential (primary) hypertension (3) Hyperlipidemia Status: Chronic Assessment & Plan: Resume home atorvastatin (4) Hepatitis C, chronic Status: Chronic Assessment & Plan: Recently had consult with Dr. Grande and was to start treatment with Epclusa, do not believe this had started yet as med was getting arranged. (5) Seizure disorder Status: Chronic Assessment & Plan: Continue home depakote. (6) Coronary artery disease Status: Chronic Assessment & Plan: Resume home medications Qualifiers: (7) Peripheral arterial disease Status: Chronic (8) DVT prophylaxis Status: Acute Assessment & Plan: Defer starting pharmacologic to after cath Clinical Quality Measures AMI/AHF: ASA po Prior to arrival: Yes (81mg) DVT/VTE Risk/Contraindication: Risk Factor Score Per Nursin RFS Level Per Nursing on Admit: 3=High CEDRIC VILLANUEVA MD May 29, 2019 15:35
[2019-05-29] MEDS ORDERED: fentaNYL INJECTION 100 MCG/2 ML AMP IVP PRN ×2 (16:15→17:00)
--- NOTE | 2019-05-29 16:19 | NUR ---
DR FLORES IN ROOM TO SEE PATIENT, NEW VERBAL ORDERS FOR PAIN MEDICATION RECEIVED. SEE ORDER HX
[2019-05-29] MEDS: oxyCODONE/APAP 5/325MG (PERCOCET 5) TABLET PO PRN ×2 (16:36→20:43)
[2019-05-29] MEDS: NS IV 1000 ML 1,000 ML IV SCH ×2 (16:39→23:52)
[2019-05-29] MEDS ORDERED: ATROPINE INJECTION 1 MG/10 ML SYR (ABBOTT) ONE (17:37)
[2019-05-30] VITALS (12 sets, daily range): BP systolic 124–140; BP diastolic 84–91
[2019-05-30] MEDS: oxyCODONE/APAP 5/325MG (PERCOCET 5) TABLET PO PRN ×2 (02:35→08:35)
[2019-05-30 03:39] LABS: HEMOGLOBIN 13.2 G/DL (13.3-17.7); MEAN PLATELET VOLUME 10.8 FL (7.4-10.4); RED CELL DISTRIBUTION WIDTH 13.1 % (10.0-14.5); WHITE BLOOD COUNT 6.8 10^3/uL (4.3-11.0)
[2019-05-30 03:55] LABS: ALANINE AMINOTRANSFERASE 86 U/L (0-55); ALBUMIN 3.7 GM/DL (3.2-4.5); ALKALINE PHOSPHATASE 128 U/L (40-136); BILIRUBIN,TOTAL 0.7 MG/DL (0.1-1.0); BUN/CREATININE RATIO 14; CALCIUM 8.7 MG/DL (8.5-10.1); CARBON DIOXIDE 22 MMOL/L (21-32); CHLORIDE 103 MMOL/L (98-107); CREATININE SERUM 0.83 MG/DL (0.60-1.30); GFR ESTIMATED > 60; GLUCOSE 116 MG/DL (70-105); POTASSIUM 4.4 MMOL/L (3.6-5.0); SODIUM 137 MMOL/L (135-145); TOTAL PROTEIN 7.1 GM/DL (6.4-8.2)
--- NOTE | 2019-05-30 04:30 | NUR ---
THIS RN APPLIED PRESSURE FOR 7 MINUTES TO PT'S RT GROIN AFTER NOTICING SANGUINOUS SATURATED DRESSING. FOLLOWING PRESSURE, NO BLEEDING NOTED, NEW DRESSING APPLIED. WILL CONTINUE TO MONITOR.
[2019-05-30] MEDS: CATHETER FLUSH 10 ML SYR IV SCH (06:25)
[2019-05-30] MEDS: DIVALPROEX EXT RELEASE 500 MG (DEPAKOTE ER) TAB PO SCH (08:35)
[2019-05-30] MEDS ORDERED: PANTOPRAZOLE 40 MG (PROTONIX) TAB PO SCH (09:00)
[2019-05-30] MEDS ORDERED: ASPIRIN E.C. 81 MG (ECOTRIN) TAB PO SCH (09:00)
[2019-05-30] MEDS ORDERED: amLODIPine 10 MG (NORVASC) TAB PO SCH (09:00)
[2019-05-30] MEDS ORDERED: CLOPIDOGREL 75 MG (PLAVIX) TABLET PO SCH (09:00)
[2019-05-30] MEDS ORDERED: lisINopril 20 MG (PRINIVIL) TABLET PO SCH (09:00)
--- NOTE | 2019-05-30 09:59 | Cardiology Progress Note ---
Subjective Date Seen by Provider: May 30, 2019 Time Seen by Provider: 09:58 Subjective/Events-last exam Patient is laying down in bed, groin is healing well. Denied any chest pain, leg is feeling better Review of Systems General: No Chills, No Night Sweats, No Fatigue, No Malaise, No Appetite, No Other HEENT: No Head Aches, No Visual Changes, No Eye Pain, No Ear Pain, No Dysphasia, No Sinus Congestion, No Post Nasal Drip, No Sore Throat, No Other Pulmonary: No Dyspnea, No Cough, No Pleuritic Chest Pain, No Other Cardiovascular: No: Chest Pain, Palpitations, Orthopnea, Paroxysmal Noc. Dyspnea, Edema, Lt Headedness, Other Objective-Cardiology Exam Last Set of Vital Signs Vital Signs 05/30/19 05/30/19 03:47 09:00 Temp 36.5 Pulse 80 Resp 28 B/P (MAP) 135/90 (105) Pulse Ox 95 O2 Delivery Room Air Capillary Refill : Less Than 3 Seconds I&O Intake and Output 05/30/19 00:00 Intake Total 400 ml Output Total 200 ml Balance 200 ml Intake Oral 400 ml Output Urine Total 200 ml General: Alert, Oriented X3, Cooperative HEENT: Atraumatic, PERRLA Neck: Supple, No JVD, No Thyromegaly Lungs: Clear to Auscultation, Normal Air Movement Heart: Regular Rate, Normal S1, Normal S2, No Murmurs Abdomen: Normal Bowel Sounds, Soft, No Tenderness, No Hepatosplenomegaly, No Masses Extremities: No Clubbing, No Cyanosis, No Edema, Normal Pulses, No Tenderness/Swelling Skin: No Rashes, No Breakdown, No Significant Lesion Neuro: Normal Gait, Normal Speech, Strength at 5/5 X4 Ext, Normal Tone, Sensation Intact Psych/Mental Status: Mental Status NL, Mood NL Results Lab Laboratory Tests 05/30/19 03:23 A/P-Cardiology Admission Diagnosis Unstable angina Coronary artery disease Hypertension Peripheral arterial disease Assessment/Plan Chest pain nonspecific etiology, increasing dyspnea on exertion, cardiac catheterization showed patent stent in the right coronary artery with borderline lesion in the circumflex artery, nonobstructive disease. Continue to monitor Coronary artery disease, cardiac catheterization showed severe long segment stenosis at the midright coronary artery with deployment of long Ina 3 x 28 mm stent expanded to 3.68 mm with good results, mild to moderate disease in the proximal and mid LAD, aneurysmal dilatation with moderate disease in the circumflex artery, medical therapy is recommended. Claudication, had severe right common iliac artery stenosis with questionable hypoplasia, he was referred for evaluation with the vascular surgeon, during the procedure he had dissection in that artery, I proceeded with balloon angioplasty and deployment of Omnilink Elite 7 x 59 stents with excellent results, good dorsalis pedis pulse, both groins are healing well. Okay for discharge 20 mmHg discrepancy between the right and left arm, carotid ultrasound showed mild bilateral disease nonobstructive disease Hypertension, better. Continue to monitor Hyperlipidemia, started on statin Tobaccoism, educated on smoking cessation Hepatitis C, diagnosed and managed with [facility] and starting on treatment. Clinical Quality Measures AMI/AHF: ASA po Prior to arrival: Yes (81mg) DVT/VTE Risk/Contraindication: Risk Factor Score Per Nursin RFS Level Per Nursing on Admit: 3=High NATI FLORES MD May 30, 2019 09:59
--- NOTE | 2019-05-30 10:00 | Discharge Inst-Post CATH ---
Discharge Inst-CATH/EP Problems Reviewed?: Yes Post Cardiac Cath/EP D/C Inst Follow Up/Plan Appointment with Dr. Mcdowell's office in one to 2 weeks <b>CARDIAC CATH/EP PROCEDURE DISCHARGE INSTRUCTIONS</b> ACTIVITY * Go Home directly and rest. * Limit activity of the leg (or wrist if it was used) for 7 days including a erobics, swimming, jogging, bicycling, etc. * Restrict stair-climbing for 7 days if possible, if not, climb up with your non-cath leg, then bring together on the same step. * Avoid lifting, pushing, pulling or excessive movement of the affected extre mity for 7 days. * Customary sexual activity may be resumed after 2 days-use caution not to use a position that strains or causes pain to the affected extremity. * No driving for 24 hours. * NO SMOKING. * Avoid straining for bowel movements for 7 days. * Gentle walking on level ground is allowed. * Returning to work will depend on the type of procedure and the results. Your d octor will discuss this with you. CALL YOUR DOCTOR FOR ANY OF THE FOLLOWING: *If bleeding from the puncture site occurs- Apply gentle pressure to site with clean cloth and call your doctor or EMS. * If a knot or lump forms under the skin, increases in size, or causes pain. * If bruising appears to be worsening or moving further down your leg instead of disappearing. * Temperature above 101 F. CARE OF YOUR GROIN INCISION; * Bruising or purple discoloration of the skin near the puncture site is common. * You may shower only, no bathtub bathing for 5 days. Be careful to avoid slipping as your leg may feel stiff. * If a closure device was used on your femoral artery, please see the attached guide regarding care of the device and your leg. * Leave dressing on FOR 24 hours. CARE OF YOUR WRIST INCISION; * Bruising or purple discoloration of the skin near the puncture site is common. * You may shower. * DO NOT submerge wrist. * Leave dressing on FOR 24 hours. NATI MCDOWELL MD May 30, 2019 10:00
--- NOTE | 2019-05-30 12:00 | NUR ---
IV removed, tip intact. Entire discharge packet discussed with patient. patient stated that he does not have any further questions at this time, that all of his questions have been answered. Patients son is at bedside, he is his ride home.
--- NOTE | 2019-05-30 13:22 | Discharge Summary ---
Discharge Summary Hospital Course Was the Problem List Reviewed?: Yes Hospital Course Date of Admission: May 28, 2019 at 17:07 Admission Diagnosis : Family Physician/Provider: Niharika Bustillos Aprn Date of Discharge: 05/30/19 Discharge Diagnosis: Unstable angina, cardiac catheter with intervention, smoker Hospital Course: Patient had an uneventful hospital course was admitted for chest pain underwent cardiac catheterization and intervention with stent was placed. Smoking cessation was counseled. Patient was stable and was deemed ready for discharge. Labs and Pending Lab Test: Laboratory Tests 05/29/19 16:55: Activated Partial Thromboplast Time 34 05/30/19 03:23: White Blood Count 6.8, Red Blood Count 4.13L, Hemoglobin 13.2L, Hematocrit 39L, Mean Corpuscular Volume 95, Mean Corpuscular Hemoglobin 32, Mean Corpuscular Hemoglobin Concent 34, Red Cell Distribution Width 13.1, Platelet Count 99L, Mean Platelet Volume 10.8H, Sodium Level 137, Potassium Level 4.4, Chloride Level 103, Carbon Dioxide Level 22, Anion Gap 12, Blood Urea Nitrogen 12, Creatinine 0.83, Estimat Glomerular Filtration Rate > 60, BUN/Creatinine Ratio 14, Glucose Level 116H, Calcium Level 8.7, Corrected Calcium 8.9, Total Biliru bin 0.7, Aspartate Amino Transf (AST/SGOT) 104H, Alanine Aminotransferase (ALT/SGPT) 86H, Alkaline Phosphatase 128, Total Protein 7.1, Albumin 3.7 Home Meds Active Clopidogrel (Clopidogrel Bisulfate) 75 Mg Tablet 75 Mg PO DAILY Reported Epclusa 400 mg-100 mg Tablet (Sofosbuvir/Velpatasvir) 1 Each Tablet 1 Each PO DAILY Proair Hfa (Albuterol Sulfate) 1 Puff Puff 2 Puff IH Q4H PRN 1 PUFF = 90 MCG Advair 250-50 Diskus (Fluticasone/Salmeterol) 1 Each Blst.w.dev 1 Each IH BID Atorvastatin Calcium 40 Mg Tablet 40 Mg PO DAILY Pantoprazole Sodium 40 Mg Tablet.dr 40 Mg PO DAILY Amlodipine Besylate 10 Mg Tablet 10 Mg PO DAILY Lisinopril 20 Mg Tablet 20 Mg PO DAILY Aspirin EC (Aspirin) 81 Mg Tablet.dr 81 Mg PO DAILY Metoprolol Succinate 25 Mg Tab.er.24h 25 Mg PO HS Divalproex Sodium ER (Divalproex Sodium) 500 Mg Tab.er.24h 1,000 Mg PO HS TAKES 2 (500MG) TABS Divalproex Sodium ER (Divalproex Sodium) 500 Mg Tab.er.24h 500 Mg PO DAILY Assessment/Pt Instructions [facility] 1 week Discharge Planning: <30 minutes discharge planning Discharge Instructions Discharge Diet: Cardiac Diet Activity as Tolerated: Yes Discharge Physical Examination Vital Signs Vital Signs Date Time Temp Pulse Resp B/P (MAP) Pulse Ox O2 Delivery O2 Flow Rate FiO2 05/30/19 12:00 36.8 05/30/19 11:00 80 13 139/90 (106) 96 Room Air General Appearance: No Apparent Distress, WD/WN Respiratory: Chest Non Tender, Lungs Clear, Normal Breath Sounds, No Accessory Muscle Use, No Respiratory Distress Cardiovascular: Regular Rate, Rhythm, No Edema, No Gallop, No JVD, No Murmur, Normal Peripheral Pulses Allergies: Coded Allergies: azithromycin (Verified Allergy, Unknown, headaches, 02/04/17) Discharge Summary Date of Admission May 28, 2019 at 17:07 Date of Discharge May 30, 2019 at 11:55 Discharge Date: May 30, 2019 Clinical Quality Measures AMI/AHF: ASA po Prior to arrival: Yes (81mg) DVT/VTE Risk/Contraindication: Risk Factor Score Per Nursin RFS Level Per Nursing on Admit: 3=High YARI SMITH DO May 30, 2019 13:22
== END 2019-05-30 11:55 | disposition home or self-care (01) | DRG 252 ==
LOC: EDUNIT# 14:55 → ER FS 14:56 → ICU 17:07
PROVIDERS: ADMIT Family Medicine; ATTEND Internal Medicine
PROC: 047C3DZ Dilation of Right Common Iliac Artery with Intraluminal Device, Percutaneous Approach (ICD-10-PCS; principal; 2019-05-29)
PROC: 4A023N7 Measurement of Cardiac Sampling and Pressure, Left Heart, Percutaneous Approach (ICD-10-PCS; 2019-05-29)
PROC: B2101ZZ Fluoroscopy of Single Coronary Artery using Low Osmolar Contrast (ICD-10-PCS; 2019-05-29)
PROC: B41 Imaging, Lower Arteries, Fluoroscopy (ICD-10-PCS; 2019-05-29)
DX: I25.110 Atherosclerotic heart disease of native coronary artery with unstable angina pectoris (principal); I77.72 Dissection of iliac artery; I77.1 Stricture of artery; I70.211 Atherosclerosis of native arteries of extremities with intermittent claudication, right leg; F17.210 Nicotine dependence, cigarettes, uncomplicated; I10 Essential (primary) hypertension; G40.909 Epilepsy, unspecified, not intractable, without status epilepticus; M19.90 Unspecified osteoarthritis, unspecified site; F31.9 Bipolar disorder, unspecified; B18.2 Chronic viral hepatitis C; E78.5 Hyperlipidemia, unspecified; Z56.0 Unemployment, unspecified
CPT/HCPCS: 36415; 71045; 80053; 80061; 83690; 83735; 83874; 83880; 84484; 85025; 85027; 85379; 85610; 85730; 93005; 93041; 93458

== ENCOUNTER 2019-07-06 09:14 | Outpatient (RCR) | payer OTHER ==
[~2019-07-06 09:14] MED LIST changes: +FLUT1DIS26 IH; -IBUP-2055 PO; +IBUP-2473 PO; -METO-387 PO; +MTP25TSR PO; +RT-ALBUINH IH; +SOFO1TAB PO
== END 2019-07-22 | disposition home or self-care (01) ==
LOC: CR3 09:14
PROVIDERS: ATTEND Internal Medicine Cardiovascular Disease
DX: Z48.812 Encounter for surgical aftercare following surgery on the circulatory system (principal); Z95.5 Presence of coronary angioplasty implant and graft; Z29.8 Encounter for other specified prophylactic measures

== ENCOUNTER → 2020-03-29 | Outpatient (CLI) | payer SELFPAY ==
[~2020-03-29] MED LIST changes: +AMLO-251 PO; -AMLO10TA7 PO; +ASPI-1238 PO; -ASPI-983 PO; -PANT40TA3 PO; +PANT40TA52 PO
--- NOTE | 2020-03-29 16:26 | Diagnostic Imaging Report ---
EXAMINATION: Abdominal radiographs, acute series. DATE: March 29, 2020. CLINICAL INDICATION: 59-year-old male, diarrhea. COMPARISON: None. COMMENTS: The heart size and mediastinal contours are unremarkable. There is no identified pneumothorax. There is no large pleural effusion. There is no identified focal airspace consolidation. Right upper quadrant surgical clips likely relate to prior cholecystectomy. There is no identified free intraperitoneal air. There are gas-filled segments of small and large bowel which are not grossly distended. The amount of gas filled segments of small bowel is abnormal. There is no identified pneumatosis or portal venous gas. IMPRESSION: 1. Abnormal but nonspecific bowel gas pattern with abnormal amount of gas filled segments of small bowel. 2. No gross bowel distention or findings to specifically suggest bowel obstruction. Dictated by: Dictated on workstation # [id number]
== END ==
LOC: RAD FS 15:38
PROVIDERS: ATTEND Nurse Practitioner Family
DX: R19.7 Diarrhea, unspecified (principal)
CPT/HCPCS: 74022

== ENCOUNTER → 2021-05-29 | Outpatient (CLI) | payer SELFPAY ==
[~2021-05-29] MED LIST changes: -LISI-552 PO; +LISI20TA26 PO
--- NOTE | 2021-05-29 09:43 | Diagnostic Imaging Report ---
INDICATION: Left shoulder pain. TIME OF EXAM: 9:22 AM. TECHNIQUE: Multiple views of the left shoulder were obtained. FINDINGS: There are glenohumeral joint degenerative changes. Joint space narrowing is seen. There are marginal osteophytes at the humeral head/neck junction. There is a benign well corticated osseous density projected inferior to the glenohumeral joint, consistent with a loose body. The glenohumeral and acromioclavicular alignment is normal. The acromiohumeral space is normal. No fracture or dislocation is identified. IMPRESSION: Chronic changes of the left shoulder, as described. No acute bony abnormality is seen. There is a well corticated osseous loose body projected inferior to the glenohumeral joint. Dictated by: Dictated on workstation # [id number]
== END ==
LOC: RAD FS 09:14
PROVIDERS: ATTEND Nurse Practitioner
DX: M19.012 Primary osteoarthritis, left shoulder (principal)
CPT/HCPCS: 73030

== ENCOUNTER 2023-02-18 09:39 | Day surgery (SDC) | payer MEDICAID, OTHER ==
[~2023-02-18] VITALS: Ht 180.3 cm; Wt 79.0 kg
[~2023-02-18 09:39] MED LIST changes: +ALBU6.7H13 INH; +ALBU8.5H6 IH; +AMLO-250 PO; +FLUT1AER7 IH; +METF-478 PO; +METO50TA7 PO; -RT-ALBUINH IH
[2023-02-18] MEDS ORDERED: LACTATED RINGERS 1,000 ML 1,000 ML IV STA (10:01)
[2023-02-18 10:09] VITALS: BP 124/95
[2023-02-18] MEDS ORDERED: HURRICAINE EXT TUBE (BENZOCAINE) XX PRN (10:15)
--- NOTE | 2023-02-18 10:49 | Progress Note-Pre Operative ---
Pre-Operative Progress Note Date of Available H&P: Feb 05, 2023 Date H&P Reviewed: Feb 18, 2023 Time H&P Reviewed: 10:47 History & Physical: H&P Reviewed, Patient Examed, No changes noted Pre-Operative Diagnosis: +Cologuard, dysphagia ZEESHAN RODRIGUEZ DO Feb 18, 2023 10:49
[2023-02-18] MEDS ORDERED: MIDAZOLAM INJ 2 MG/2 ML VIAL ONE (12:08)
[2023-02-18 12:55] VITALS: BP 115/71
[2023-02-18 13:00] VITALS: BP 124/77
--- NOTE | 2023-02-18 13:02 | Progress Note-Post Operative ---
Post-Operative Progess Note Surgeon (s)/Edger Technician (s) Surgeon ZEESHAN RODRIGUEZ DO Edger Technician: none Pre-Operative Diagnosis +Cologuard, dysphagia Post-Operative Diagnosis Duodenitis Gastritis Hiatal hernia Polyp diverticula Int hemorrhoids Procedure & Operative Findings Date of Procedure 02/18/23 Procedure Performed/Findings EGD with biopsy Colonoscopy with snare polypectomy PROCEDURE NOTE: After informed consent was obtained, the patient was brought to the endoscopy suite, placed in bed in left lateral decubitus position. He was administered IV sedation by the [employer]PERATOR who then monitored vitals the entire time, heart rate, blood pressure and pulse ox and the scope was inserted down the mouth through the esophagus into the stomach. On the way down, noted some mild esophagitis, took a picture, pushed into the stomach, pushed past the antrum into the duodenum. Duodenum had inflammation and elected to do a biopsy. Pulled back, noted inflammation and did a biopsy of the antrum, then retroflexed the scope, saw hiatal hernia, took a picture of this hiatal hernia. I then pulled the scope into the GE junction, took another picture of the hiatal hernia and then did a biopsy of the GE junction. Pushed the scope back into the stomach, suctioned all the air out of the stomach. At this point pulled the scope up the esophagus and out the mouth. Switched camera, switched gloves, went down below and started the colonoscopy. Pushed all the way to about 150 cm and pushed into the cecum, took a picture of appendiceal orifice and noted the ileocecal valve. Then slowly withdrew the scope insufflating to look circumferentially at the mayer starting in the cecum, up the ascending colon to the hepatic flexure, then down the transverse colon to the splenic flexure, into the descending colon and down into the sigmoid. I found a polyp and removed it with the snare. I also saw some diverticula and took a picture of them. Finally, into the rectal vault, retroflexed the scope and took a picture of the internal hemorrhoids. The patient tolerated the procedure and he recovered in the endoscopy suite. Recommended for repeat colonoscopy in 5 years Anesthesia Type IV sedation by [employer] Estimated Blood Loss Estimated blood loss (mL): scant Specimens/Packing Specimens Removed duodenal bx antral bx Body of stomach bx GE jxn bx Sigmoid polyp ZEESHAN RODRIGUEZ DO Feb 18, 2023 13:02
--- NOTE | 2023-02-18 13:03 | Endoscopy Discharge Instruct ---
Endo Procedure/Findings Findings 1.: Gastritis, Other Findings (duodenitis) 2.: Hiatal Hernia 3.: Polyp 4.: Diverticulosis, Internal Hemorrhoids Discharge Instructions - Activity: You might feel a little sleepy until tomorrow. This is due to the medicine you received to relax you. Until tomorrow, you should: NOT drive a car, operate machinery or power tools. NOT drink any alcoholic beverages. NOT make any important decisions or sign importortant papers. Do not return to work until tomorrow, unless otherwise instructed. Resume previous activities tomorrow. Diet: Start by taking liquids. If you tolerate liquids, advance to solid food. 1.: EGD in 1 year 2.: Colonscopy in 5 years Notify Physician - If you experience excessive bleeding, unusual abdominal pain, fever, or chest pain, contact your doctor immediately. Follow-Up: Other Follow up in my office in one week ZEESHAN RODRIGUEZ DO Feb 18, 2023 13:03
--- NOTE | 2023-02-18 13:45 | Anesthesia-General Post-Op ---
MAC Patient Condition Mental Status/LOC: Same as Preop Cardiovascular: Satisfactory Nausea/Vomiting: Absent Respiratory: Satisfactory Pain: Controlled Complications: Absent Post Op Complications Complications None Follow Up Care/Instructions Patient Instructions None needed. Anesthesiology Discharge Order Discharge Order Patient is doing well, no complaints, stable vital signs, no apparent adverse anesthesia problems. No complications reported per nursing. DUY CALDERON TROLLEY OPERATOR Feb 18, 2023 13:45
[2023-02-18 13:50] VITALS: BP 134/88
== END 2023-02-18 13:50 | disposition home or self-care (01) ==
LOC: ENDO 09:39
PROVIDERS: ATTEND Surgery
DX: Z12.11 Encounter for screening for malignant neoplasm of colon (principal); D12.5 Benign neoplasm of sigmoid colon; K21.00 Gastro-esophageal reflux disease with esophagitis, without bleeding; K29.80 Duodenitis without bleeding; K29.70 Gastritis, unspecified, without bleeding; K44.9 Diaphragmatic hernia without obstruction or gangrene; K57.30 Diverticulosis of large intestine without perforation or abscess without bleeding; K64.8 Other hemorrhoids; K31.89 Other diseases of stomach and duodenum; R19.5 Other fecal abnormalities; F17.210 Nicotine dependence, cigarettes, uncomplicated; Z79.01 Long term (current) use of anticoagulants